=== PATIENT | female | born 1990 | race Two or more races ===

== ENCOUNTER → 2019-03-25 11:17 | Outpatient (CLI) | payer OTHER, SELFPAY ==
[2019-03-25 13:24] LABS: Basophils % 0.8 % (0.1-2.0); Eosinophils # 0.2 K/mm3 (0.0-0.4); Eosinophils % 4.9 % (0.1-12.0); Hematocrit 42.4 % (37.0-47.0); Hemoglobin 13.6 g/dL (12.2-16.2); Lymphocytes # 1.7 K/mm3 (0.7-4.5); Lymphocytes % 36.2 % (10-50); Mean Corpuscular HGB Conc 32.1 g/dL (31.8-35.4); Mean Corpuscular Volume 90.2 fl (81-99); Mean Platelet Volume 7.3 fl (7.4-10.4); Monocytes # 0.2 K/mm3 (0.1-1.0); Monocytes % 4.6 % (1.7-9.3); Neutrophils # 2.4 K/mm3 (1.8-7.8); Neutrophils % 53.5 % (37.0-80.0); Platelet Count 317 K/mm3 (142-424); Red Cell Distribution Width 12.5 % (11.5-17.5); White Blood Count 4.6 K/mm3 (4.8-10.8)
[2019-03-25 13:47] LABS: HCG Qualitative, Serum Negative (Negative)
[2019-03-25 13:51] LABS: Alanine Aminotransferase 376 U/L (12-78); Albumin Level 3.4 gm/dL (3.4-5.0); Albumin/Globulin Ratio 0.9 (1.1-1.8); Alkaline Phosphatase 435 U/L (46-116); Anion Gap 15.4 mEq/L (5-15); Aspartate Amino Transferase 197 U/L (15-37); Bilirubin,Total 3.4 mg/dL (0.2-1.0); Blood Urea Nitrogen 9 mg/dL (7-18); Calcium 8.8 mg/dL (8.5-10.1); Carbon Dioxide 24 mmol/L (21.0-32.0); Chloride 105 mmol/L (98-107); Creatinine,Serum 0.71 mg/dL (0.55-1.02); Estimated Glomerular Filt Rate 100 ml/min (>60); GFR (African American) 120 ML/MIN (>60); Globulin 3.8 gm/dl (1.3-3.2); Glucose 102 mg/dL (74-106); Potassium 3.4 mmoL/L (3.5-5.1); Sodium 141 mmol/L (136-145); Total Protein,Serum 7.2 gm/dL (6.4-8.2)
[2019-03-25 16:04] LABS: Lipase 2021 u/L (73-393)
== END ==
PROVIDERS: PCP Nurse Practitioner Family; Visit Provider Nurse Practitioner Family
DX: R11.10 Vomiting, unspecified (principal)
CPT/HCPCS: 36415; 80053; 83690; 84703; 85025

== ENCOUNTER → 2019-03-31 15:12 | Outpatient (CLI) | payer OTHER, SELFPAY ==
[2019-03-31 15:37] LABS: Basophils % 0.5 % (0.1-2.0); Eosinophils # 0.3 K/mm3 (0.0-0.4); Eosinophils % 3.9 % (0.1-12.0); Hematocrit 43.4 % (37.0-47.0); Hemoglobin 13.7 g/dL (12.2-16.2); Lymphocytes # 2.4 K/mm3 (0.7-4.5); Lymphocytes % 31.6 % (10-50); Mean Corpuscular HGB Conc 31.6 g/dL (31.8-35.4); Mean Corpuscular Hemoglobin 28.4 pg (27.0-31.2); Mean Corpuscular Volume 89.8 fl (81-99); Mean Platelet Volume 7.3 fl (7.4-10.4); Monocytes # 0.3 K/mm3 (0.1-1.0); Monocytes % 3.8 % (1.7-9.3); Neutrophils # 4.6 K/mm3 (1.8-7.8); Neutrophils % 60.2 % (37.0-80.0); Platelet Count 341 K/mm3 (142-424); Red Blood Count 4.83 M/mm3 (4.20-5.40); Red Cell Distribution Width 12.3 % (11.5-17.5); White Blood Count 7.6 K/mm3 (4.8-10.8)
[2019-03-31 16:55] LABS: HCG Qualitative, Serum Negative (Negative)
[2019-03-31 17:34] LABS: Alanine Aminotransferase 94 U/L (12-78); Albumin Level 3.6 gm/dL (3.4-5.0); Albumin/Globulin Ratio 0.9 (1.1-1.8); Alkaline Phosphatase 239 U/L (46-116); Amylase 61 U/L (25-115); Anion Gap 14.6 mEq/L (5-15); Aspartate Amino Transferase 22 U/L (15-37); Bilirubin,Total 0.6 mg/dL (0.2-1.0); Blood Urea Nitrogen 10 mg/dL (7-18); Calcium 8.8 mg/dL (8.5-10.1); Carbon Dioxide 23 mmol/L (21.0-32.0); Chloride 106 mmol/L (98-107); Creatinine,Serum 0.72 mg/dL (0.55-1.02); Estimated Glomerular Filt Rate 98 ml/min (>60); GFR (African American) 118 ML/MIN (>60); Globulin 3.8 gm/dl (1.3-3.2); Glucose 90 mg/dL (74-106); Lipase 214 u/L (73-393); Potassium 3.6 mmoL/L (3.5-5.1); Sodium 140 mmol/L (136-145); Total Protein,Serum 7.4 gm/dL (6.4-8.2)
== END ==
PROVIDERS: Visit Provider Surgery
DX: K85.90 Acute pancreatitis without necrosis or infection, unspecified (principal); K85.10 Biliary acute pancreatitis without necrosis or infection
CPT/HCPCS: 36415; 80053; 82150; 83690; 84703; 85025

== ENCOUNTER → 2020-04-04 13:09 | Outpatient (CLI) | payer OTHER, SELFPAY ==
--- NOTE | 2020-04-04 13:14 | XR_ITS ---
PROCEDURE: XR WRIST RT MIN 3V CLINICAL INDICATION: INJURY OF R WRIST/INITIAL ENCOUNTER Pain following injury COMPARISON: No exams were available for comparison FINDINGS: No fracture or dislocation. No lytic or blastic change. There is normal mineralization. The joint spaces are well-preserved. No significant degenerative/arthritic changes. No erosive changes evident. Other findings:None. IMPRESSION: No acute findings. Dictated by: Gerald Newton MD 04/04/2020 13:53 Electronically signed by Gerald Newton MD in [place] 04/04/2020 13:53
== END ==
PROVIDERS: PCP Nurse Practitioner Family; Visit Provider Nurse Practitioner Family
DX: S69.91XA Unspecified injury of right wrist, hand and finger(s), initial encounter (principal)
CPT/HCPCS: 73110

== ENCOUNTER 2020-12-09 09:32 | Emergency (ER) | payer BC, SELFPAY ==
[2020-12-09 10:14] VITALS: BP 151/91; PULSE 88; RESP 16; TEMP 37.2; O2SAT 97; BMI 32.4
--- NOTE | 2020-12-09 10:39 | HMH.EDUTC ---
[facility] [place] Clinical Impression: Strep throat Otitis media Qualifiers: Otitis media type: suppurative Chronicity: acute Laterality: right Recurrence: non-recurrent Spontaneous tympanic membrane rupture: without spontaneous rupture Qualified Code(s): H66.001 - Acute suppurative otitis media without spontaneous rupture of ear drum, right ear Disposition: Home, Self-Care Condition on Discharge: Good Instructions: DI for Strep Throat, Middle Ear Infection Additional Instructions: Start antibiotics today be sure to take it as ordered with the full length of time although you should start feeling better in 24-48 hours. Change toothbrush and toothpaste 24-48 hours after starting antibiotics Tylenol or Motrin as needed for fever or pain Encourage fluids, water, Gatorade, Powerade, try cold fluids, popsicles, ice cream will make it feel better You are contagious for 24 hours. Avoid kissing anyone, no eating or drinking after anyone. You are contagious. Follow-up the ER for new or worsening symptoms or no noticeable improvement over the next 24-48 hours. Follow-up with PCP this week. Prescriptions: Amoxicillin [Amoxicillin 500mg Tab] 500 mg PO BID 10 Days #20 tab Prescription Printed Referrals: PCPNatalia [Primary Care Provider] - Time of Disposition: 10:45 Medical Decision Making - Lul Inquiry Pt receiving controlled substance: No Vital Signs: 12/09/20 10:14 Temperature 98.9 F Temperature Source Oral Pulse Rate [Right] 88 Respiratory Rate 16 Blood Pressure [Right Arm] 151/91 H Blood Pressure Mean [Right Arm] 111 Blood Pressure Source [Right Arm] Automatic Cuff Blood Pressure Position [Right Arm] Sitting 02 Sat by Pulse Oximetry 97 Oxygen Delivery Method Room Air [facility] [place] - General Chief complaint: Urgent [facility] Stated complaint: possible ear infection both Time Seen by Provider: 12/09/20 10:39 Mode of Arrival: Ambulatory Source of Information: Patient Limitations: No Limitations Description of Symptoms (Recalled from Triage Doc. by RN): pt is having right ear pain and pressure. she has chronic ear pressure. her son is also being tx for strep. HEENT Symptoms (Recalled from RN notes): Yes (sore throat and R ear pain) Resp Symptoms (Recalled from RN notes): No Skin Symptoms (Recalled from RN notes): No MS Symptoms (Recalled from RN notes): No Functional Status (Recalled from RN notes): na - History of Present Illness Provider Complaint: 30 yr old female presents for sore throat, irene ear pain and ear pressure for 2 days. son was dx with strep yesterday - Related Data Previous Rx's Medication Instructions Recorded Amoxicillin [Amoxicillin 500mg Tab] 500 mg PO BID 10 Days #20 tab 12/09/20 Allergies Allergy/AdvReac Type Severity Reaction Status Date / Time No Known Allergies Allergy Verified 04/07/19 13:48 - Worker's Comp Is this a Worker's Comp case?: No [facility] History - Hepatitis A Screen Drug use history?: No High risk sexual behaviors?: No History of sexually transmitted infection?: No Currently employed?: No Childcare worker?: No Do you have indoor plumbing?: Yes Do you have electricity?: Yes Attestation statement:: This patient has been screened for Hepatitis A risk factors. I have reviewed the patient's past medical history: Yes Medical History: Reports:: Anxiety Denies:: Cancer, Diabetes Mellitus Type 1, Diabetes Mellitus Type 2, Internal Pacemaker, Lung Disease, MRSA, Seizures Other Medical History: Denies: Blood Transfusion Reaction Other Surgeries: Yes: Cholecystectomy, Other (left should lesion excision, ). No: Pacemaker Amputation: No Fractures: No - Social History Smoking Status: Never smoker Alcohol Intake: never Alcohol Intake Frequency:: holidays/special occasions only Substance Use Type: denies use Occupational Status: employed Housing: house Household Members: spouse - Psychiatric History Pschychiatric History:: Reports:: Anxiety Family
[2020-12-09 10:54] VITALS: BP 141/87; PULSE 89; RESP 14; TEMP 36.6
[2020-12-09 11:11] LABS: UTC Strep Screen (Rapid) Negative (Negative)
== END 2020-12-09 10:54 | disposition home or self-care (01) ==
PROVIDERS: Emergency Provider Nurse Practitioner Family
DX: J02.0 Streptococcal pharyngitis (principal); H66.001 Acute suppurative otitis media without spontaneous rupture of ear drum, right ear; F41.9 Anxiety disorder, unspecified
CPT/HCPCS: 87880; 99202; G0463

== ENCOUNTER 2021-12-16 09:22 | Emergency (ER) | payer BC, SELFPAY ==
[2021-12-16 09:25] VITALS: BP 138/90; PULSE 143; RESP 18; TEMP 37.3; O2SAT 98; BMI 27.7
[2021-12-16 09:50] LABS: UTC Pregnancy Test, Urine Negative (Negative)
[2021-12-16 09:50] LABS: Apearance,Urine Clear (Clear); Bilirubin,Urine Negative (Negative); Blood, Urine 1+ (Negative); Color,Urine Yellow (Yellow); Glucose,Urine (UA) Negative (Negative); Ketones,Urine Negative (Negative); Protein,Urine 1+ (Negative)
[2021-12-16 09:51] LABS: UTC Leukocyte Esterase,Urine Trace (Negative); UTC Nitrate,Urine Negative (Negative); Urobilinogen,Urine 0.2 EU/dl (0.2)
--- NOTE | 2021-12-16 09:56 | HMH.EDUTC ---
[facility] [place] Clinical Impression: UTI (urinary tract infection) Qualifiers: Urinary tract infection type: acute cystitis Hematuria presence: with hematuria Qualified Code(s): N30.01 - Acute cystitis with hematuria Disposition: Home, Self-Care Condition on Discharge: Good Instructions: Urinary Tract Infection Additional Instructions: Increase fluids, water and not soda or tea. Can drink cranberry juice or cranberry extract. White front to back Wear cotton underwear Empty bladder after intercourse Start antibiotics immediately and make sure you take the full course although you may start to see improvement over the next 48 hours. You can eat yogurt or take probiotics to decrease diarrhea or yeast infection caused by the antibiotic Be sure to follow-up anytime for new or worsening symptoms in 48 hours for wound urine culture results be sure to let you PCP no recent urine for culture so they can request records and ensure that you have appropriate antibiotic if you are not getting better or getting worse. If symptoms worsen or do not improve return or be seen in the ER. Follow-up with primary care this week. Prescriptions: cephALEXin [Cephalexin 500mg Tab] 500 mg PO BID 7 Days #14 tab Prescription Printed Referrals: Provider,Referral, MD [Primary Care Provider] - Time of Disposition: 10:02 Medical Decision Making - Lul Inquiry Pt receiving controlled substance: No Vital Signs: 12/16/21 09:25 Temperature 99.1 F Temperature Source Oral Pulse Rate [Left Brachial] 143 H Respiratory Rate 18 Blood Pressure [Left Arm] 138/90 Blood Pressure Mean [Left Arm] 106 Blood Pressure Source [Left Arm] Automatic Cuff Blood Pressure Position [Left Arm] Sitting 02 Sat by Pulse Oximetry 98 Oxygen Delivery Method Room Air - Lab Data Lab Results 12/16/21 09:37: Urine Color Yellow, Urine Appearance Clear, Urine pH 5.0, Ur Specific [place] 1.030, Urine Protein 1+, Urine Glucose (UA) Negative, Urine Ketones Negative, Urine Blood 1+, Urine Nitrate Negative, Urine Bilirubin Negative, Urine Urobilinogen 0.2, Ur Leukocyte Esterase Trace 12/16/21 09:49: Tst Clinic Negative Orders (Tests/Meds): ORDERS Category Date Time Status Urine Culture Stat Micro 12/16/21 09:49 Ordered [facility] [place] - General Chief complaint: Urgent Treatment Center Stated complaint: stabbing pains and nausea Time Seen by Provider: 12/16/21 09:56 Mode of Arrival: Ambulatory Source of Information: Patient Limitations: No Limitations Description of Symptoms (Recalled from Triage Doc. by RN): PATIENT C/O PAIN UNDER RIGHT RIBS, VOMITING, DIARRHEA, AND LOWER BACK PAIN SINCE LAST NIGHT HEENT Symptoms (Recalled from RN notes): No Resp Symptoms (Recalled from RN notes): No Skin Symptoms (Recalled from RN notes): No MS Symptoms (Recalled from RN notes): Yes Functional Status (Recalled from RN notes): WNL - History of Present Illness Provider Complaint: 31 yr old female presents for rt rib pain,vomiting, diarreha, and lower back pain. - Related Data Previous Rx's Medication Instructions Recorded cephALEXin [Cephalexin 500mg Tab] 500 mg PO BID 7 Days #14 tab 12/16/21 Allergies Allergy/AdvReac Type Severity Reaction Status Date / Time No Known Allergies Allergy Verified 04/07/19 13:48 - Worker's Comp Is this a Worker's Comp case?: No H History - Hepatitis A Screen Drug use history?: No High risk sexual behaviors?: No History of sexually transmitted infection?: No Currently employed?: No Childcare worker?: No Do you have indoor plumbing?: Yes Do you have electricity?: Yes Attestation statement:: This patient has been screened for Hepatitis A risk factors. I have reviewed the patient's past medical history: Yes Medical History: Reports:: Anxiety Denies:: Cancer, Diabetes Mellitus Type 1, Diabetes Mellitus Type 2, Internal Pacemaker, Lung Disease, MRSA, Seizures Other Medical History: Denies: Blood Transfus
[2021-12-16 10:04] VITALS: BP 138/90; PULSE 143; RESP 18; TEMP 37.3; O2SAT 98
== END 2021-12-16 10:10 | disposition home or self-care (01) ==
PROVIDERS: Emergency Provider Nurse Practitioner Family
DX: N30.01 Acute cystitis with hematuria (principal); R11.2 Nausea with vomiting, unspecified; R19.7 Diarrhea, unspecified; F41.9 Anxiety disorder, unspecified
CPT/HCPCS: 81003; 81025; 87086; 99213; G0463

== ENCOUNTER → 2022-02-01 10:25 | Outpatient (CLI) | payer BC, SELFPAY ==
--- NOTE | 2022-02-01 10:25 | US_ITS ---
PROCEDURE INFORMATION: Exam: US Right Breast, Complete Exam date and time: 02/01/2022 10:47 AM Age: 31 years old Clinical indication: Right palp area x sev mos-- has been on antibiotics x 2 TECHNIQUE: Imaging protocol: Complete ultrasound of all four quadrants of the Right breast and the retroareolar regions, including ultrasound of the axilla when performed. COMPARISON: No relevant prior studies available. FINDINGS: Breast: Sonographic images of the right breast including the retroareolar region, all 4 quadrants and the axilla do not demonstrate any solid masses. 0.6 x 0.2 cm sebaceous cyst in the upper outer quadrant corresponding to the patient's complaint of a palpable abnormality. Additional 0.7 cm cyst in the right 10 o'clock axis 5 cm from the nipple. No architectural distortion or acoustical shadowing. No skin thickening or axillary adenopathy. IMPRESSION: Palpable abnormality corresponds to a sebaceous cyst. ASSESSMENT: BI-RADS Category 2: Benign
[2022-02-01 12:33] LABS: Thyroid Stimulating Hormone 1.54 uIU/mL (0.465-4.68)
== END ==
PROVIDERS: PCP Obstetrics & Gynecology; Visit Provider Obstetrics & Gynecology
DX: R68.82 Decreased libido; N60.01 Solitary cyst of right breast
CPT/HCPCS: 36415; 76641; 84443

== ENCOUNTER 2024-03-04 16:33 | Outpatient (CLI) | payer BC, SELFPAY ==
[2024-03-04 17:31] LABS: Basophils # 0.1 K/mm3 (0-0.2); Basophils % 0.7 % (0.1-2.0); Eosinophils # 0.2 K/mm3 (0.0-0.4); Eosinophils % 1.5 % (0.1-12.0); Hematocrit 39.4 % (37.0-47.0); Hemoglobin 13.1 g/dL (12.2-16.2); Lymphocytes # 4.5 K/mm3 (0.7-4.5); Lymphocytes % 38.4 % (10-50); Mean Corpuscular HGB Conc 33.2 g/dL (31.8-35.4); Mean Corpuscular Hemoglobin 29.2 pg (27.0-31.2); Mean Platelet Volume 7.7 fl (7.4-10.4); Monocytes # 0.5 K/mm3 (0.1-1.0); Monocytes % 4.5 % (1.7-9.3); Neutrophils # 6.4 K/mm3 (1.8-7.8); Platelet Count 380 K/mm3 (142-424); Red Blood Count 4.48 M/mm3 (4.20-5.40); Red Cell Distribution Width 13.6 % (11.5-17.5); White Blood Count 11.7 K/mm3 (4.8-10.8)
[2024-03-04 17:53] LABS: Anion Gap 15.1 mEq/L (5-15); Blood Urea Nitrogen 14 mg/dl (7-17); Calcium 9.5 mg/dl (8.4-10.2); Carbon Dioxide 24 mmol/L (22.0-30.0); Chloride 103 mmol/L (98-107); Estimated Glomerular Filt Rate 98 ml/min (>60); GFR (African American) 118 ML/MIN (>60); Glucose 92 mg/dl (74-100); Potassium 4.1 mmoL/L (3.5-5.1); Sodium 138 mmol/L (136-145)
[2024-03-04 18:00] LABS: Urine Pregnancy, HCG Qual. Negative (Negative)
== END 2024-03-04 23:59 | disposition home or self-care (01) ==
LOC: LAB 16:34
PROVIDERS: PCP Nurse Practitioner Family; Visit Provider Surgery
DX: N63.12 Unspecified lump in the right breast, upper inner quadrant (principal)
CPT/HCPCS: 36415; 80048; 81025; 85025

== ENCOUNTER 2024-03-08 05:50 | Day surgery (SDC) | payer BC, SELFPAY ==
[2024-03-03 13:08] VITALS: BMI 31.1
[2024-03-08] VITALS (9 sets, daily range): BP systolic 122–148; BP diastolic 63–91; PULSE 75–100; RESP 14–18; TEMP 36.2–36.3; O2SAT 92–100; BMI 31.1
[2024-03-08] MEDS: LACTATED RINGERS 1000ML 1,000 ML 25 ML IV (06:40)
--- NOTE | 2024-03-08 06:53 | P.PNANES_ITS ---
[facility] Disclaimer: The information contained in this section may have been updated after the patient was seen, as this information can be updated by other users. Medical History Encounter for IUD insertion Paragard 02/21/22 Decreased libido Nexplanon in place Breast mass, right sebaceous cyst UTI (urinary tract infection) Strep throat Otitis media Gallstone pancreatitis Common bile duct stone Surgical History History of cholecystectomy Family History Grandmother Cancer Heart attack Hypertension Grandfather Heart attack Other Coronary artery disease Diabetes Social History Smoking Status: Never smoker alcohol intake: never substance use type: denies use current occupational status: employed Travel in the last 8 weeks: None household members: spouse housing: house 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 current occupational exposures/hazards: No caffeine: No [facility] Anesthesia Checklist Patient Identification Patient Identification: Arm Band and Family Structural Data Admitted From: Home Planned Operative Procedure/s: Excission mass Right breast Consent for Planned Operative Procedure(s) Verified: Yes Verified Documents: Surgical Consent and History and Physical NPO Status Verified Time NPO: 00:00 Additional verifications Patient : No Anesthesia Reactions: No Hx Blood Transfusions: No Blood Transfusion Reaction: No Cephalosporin Allergy: No Previous Colonoscopy: No Airway Assessment Mallampati Score:: Class II C-Spine Mobility Assessed: Yes TMJ Mobility Assessed: Yes Dentition: Good Dentition Neurological Assessment Level of Consciousness: Awake, Alert, Appropriate and Follows Commands Hx Seizures: No Numbness or tingling in extremities: No Anesthesia Plan Anesthesia Risk discussed: Yes ASA Class: I Anesthesia Type: General
[2024-03-08] MEDS: 0.9 % SODIUM CHLORIDE 100 ML IV (07:25)
[2024-03-08] MEDS: CEFAZOLIN SODIUM 1 GM in 0.9 % SODIUM CHLORIDE 50 ML IV (07:25)
[2024-03-08] MEDS: LIDOCAINE 1% 10ML MDV 10 ML (07:26)
[2024-03-08] MEDS: ROPIVACAINE 0.5% 30ML VIAL 150 MG (07:26)
--- NOTE | 2024-03-08 07:48 | P.PNANES_ITS ---
[facility] Anesthesia Record Part I Anesthesia Record I Intake, IV Amount: 400 Hydration: Adequate Estimated blood loss (mL): 1 Urine output (mL): 0 Blood Products used (#): none Blood Pressure: 142/91 SaO2: 92 Pulse Rate: 87 Airway Patency: Patent Respiratory Rate: 14 Temperature: 97.2 F Patient is:: Drowsy and Stable Stable to PACU at:: 07:43
--- NOTE | 2024-03-08 08:19 | EXP.OP.NOTE ---
Date of procedure: 03/08/24 Pre-op Diagnosis:: Right breast mass Post-op Diagnosis:: Same Procedure performed:: Excision of subcutaneous mass right upper inner breast (excisional length 2.0 cm) Surgeon:: Jonathan Issa MD Anesthesia: LMA Estimated blood loss (mL): 3 Operative findings:: Consistent with benign inclusion cyst Operative note:: Patient was taken to the operating room. Anesthesia was induced via LMA. Right breast was prepped and draped in the standard surgical fashion. Lesion was palpated. Skin was marked the skin marker for planned crescent shaped elliptical incision. Local anesthetic was infiltrated. Skin incision was performed and careful sharp dissection was carried down to the cyst capsule. Using sharp dissection and some use of tenotomy scissors the underlying lesion was dissected free in its entirety with the attached overlying skin. There was some caseous material which exuded but was not spilled from the cyst making it consistent with an inclusion cyst. Wound was irrigated. Deep dermal tissues were reapproximated with several interrupted 3-0 Vicryl. Skin was closed with interrupted 4-0 nylon. Condition: stable Disposition: PACU Complications:: None immediately apparent
--- NOTE | 2024-03-09 08:15 | P.PNANES_ITS ---
[facility] Anesthesia Record Part II Anesthesia Record Part II Discharge Time: 08:13 Destination: Surgical Day Care (OP Surgery) PACU nurse assessment reviewed?: Yes Patient Condition:: Good Anesthesia Complications:: None Swallowing reflex intact?: Yes Airway Patency: Patent Cyanosis?: No Blood Pressure: 148/88 SaO2: 95 Respiratory Rate: 16 Pulse Rate: 89 Temperature: 97.4 F Mental Status: Alert & Oriented Pain level:: 0 Nausea and/or vomitting:: None Intake, IV Amount: 0 Hydration: Adequate
[2024-03-09 08:16] VITALS: BP 148/88; PULSE 89; RESP 16; TEMP 36.3; O2SAT 95
== END 2024-03-08 08:44 | disposition home or self-care (01) ==
PROVIDERS: PCP Nurse Practitioner Family; Visit Provider Surgery
PROC: (CPT 19125; principal; 2024-03-08 07:30)
DX: N64.4 Mastodynia (principal); N63.10 Unspecified lump in the right breast, unspecified quadrant
CPT/HCPCS: 19125; 96374; J0690; J1100; J2405; J2704; J3010; J7120

== ENCOUNTER 2024-07-05 17:33 | Outpatient (CLI) | payer BC, SELFPAY ==
[2024-07-05 18:28] LABS: HCG,Quantitative 1099 mIU/ml (0-5.42)
[2024-07-07 12:20] LABS: Progesterone 12.6 ng/mL (.)
== END 2024-07-05 23:59 | disposition home or self-care (01) ==
LOC: LAB 17:34
PROVIDERS: PCP Obstetrics & Gynecology; Visit Provider Obstetrics & Gynecology
DX: Z34.90 Encounter for supervision of normal pregnancy, unspecified, unspecified trimester (principal)
CPT/HCPCS: 84144; 84702

== ENCOUNTER 2024-07-20 16:01 | Emergency (ER) | payer BC, SELFPAY ==
[2024-07-20 16:02] VITALS: BP 171/89; PULSE 110; RESP 20; TEMP 36.8; O2SAT 99; BMI 32.0
--- NOTE | 2024-07-20 16:05 | US_ITS ---
PROCEDURE INFORMATION: Exam: US , Transvaginal Exam date and time: 07/20/2024 4:21 PM Age: 34 years old Clinical indication: Lmp or gestational age (in weeks): 05/31/2024; Other: Bleeding and cramping; ; Additional info: Vaginal bleeding in preg LABS AND CLINICAL REPORTS: Last menstrual period start date: 05/31/2024 Gestational age (Established): 7 w 1 d Estimated due date (Established): 03/07/2025 TECHNIQUE: Imaging protocol: Real-time transvaginal obstetrical ultrasound of the maternal pelvis with image documentation. Transvaginal imaging was used for better evaluation of the fetus, adnexa, and/or cervix. COMPARISON: ABDPELW CT abdomen pelvis w con 03/25/2019 6:20 PM FINDINGS: Gestation: Single intrauterine Yolk sac measures 4.7 mm. heart rate: 134 bpm Placenta: Subchorionic hemorrhage versus clotting in the left horn. BIOMETRY: Gestational age (AUA): 6 w 3 d Estimated due date (AUA): 03/12/2025 Anita rump length (CRL): 6 mm. EGA (CRL) is 6 w 3 d MATERNAL: Uterus: Question of a bicornuate uterus with IUP in the right horn.. Cervix: Nabothian cyst in the cervix Right ovary/adnexa: Right ovary measures 2.26 cm x 1.57 cm x 1.87 cm. Right ovarian volume is 3.47 mL. Left ovary/adnexa: Left ovary measures 3.02 cm x 2.92 cm x 2.11 cm. Left ovarian volume is 9.74 mL. IMPRESSION: 1. Single intrauterine . Gestational age by ultrasound 6 weeks 3 days 2. Question of a bicornuate uterus with IUP in the right horn.. 3. Subchorionic hemorrhage versus clotting in the left horn.
--- NOTE | 2024-07-20 16:15 | PC.NURSE ---
PT TO US
--- NOTE | 2024-07-20 17:04 | ED_ITS ---
Discharge Plan Disposition Patient Disposition: Home, Self-Care Chief Complaint: Vaginal Bleeding Prescriptions Prescriptions: No Action No Known Home Medications Referrals Follow up/Referrals: Lexie Craft APRN [Primary Care Provider] - See instructions Activity Restrictions/Add. Instructions Additional Instructions/Restrictions: Follow-up with SCALE OPERATOR regarding this visit to the emergency department. Call your family doctor to establish care for this visit to the emergency department and schedule follow-up within 48 hours to ensure improvement. If you have any worsening of your condition or any other concerning signs or symptoms, return to the emergency department or your primary care doctor for further evaluation. Clinical Impressions Clinical Impression: Vaginal bleeding affecting early Print Language Print Language: Syriac Discharge ED Provider: Jorge Rubalcava General Adult HPI General Chief complaint: Vaginal Bleeding Stated complaint: 7 wks with spotting and cramping Time Seen by Provider: 07/20/24 16:04 Mode of Arrival: Ambulatory Source of Information: Patient Limitations: No Limitations Description of Symptoms (Recalled from ER Triage Doc. by RN): pt is a patient of dr morocho and had some pink on toilet paper wiping today. pt is approx 7 weeks along and this will be 4th . pt is tony x4 and rh neg History of Present Illness HPI narrative: Please note that above description of symptoms, in this electronic medical record under categorization of recalled from ER triage doctor by RN are reflective of an initial nursing assessment, however, is not reflective of my full history and physical exam that was personally taken and clarified. Consequentially, this preceding description of symptoms, which may include the patient's categorized chief complaint in the EMR, do not reflect my personal clinical impression, and the ultimate description of history of present illness and patient stated complaints should be deferred to this section of the note. Unless stated otherwise or congruent with this section of the note, additional signs, symptoms, or incongruence should be interpreted as inaccurate with my clinical impression. Related Data Home Medications ?Medication ?Instructions ?Recorded ?Confirmed No Known Home Medications 01/27/24 03/23/24 Allergies Allergy/AdvReac Type Severity Reaction Status Date / Time No Known Allergies Allergy Verified 03/23/24 13:32 [facility] Disclaimer: The information contained in this section may have been updated after the patient was seen, as this information can be updated by other users. Medical History Encounter for IUD insertion Paragard 02/21/22 Decreased libido Nexplanon in place Breast mass, right sebaceous cyst UTI (urinary tract infection) Strep throat Otitis media Gallstone pancreatitis Common bile duct stone Surgical History History of cholecystectomy Family History Grandmother Cancer Heart attack Hypertension Grandfather Heart attack Other Coronary artery disease Diabetes Social History Smoking Status: Never smoker alcohol intake: never substance use type: denies use current occupational status: employed Travel in the last 8 weeks: None household members: spouse housing: house 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 current occupational exposures/hazards: No caffeine: No Other Medical History Have you received the Flu Vaccine for this season: No Have you received the Pneumonia Vaccine: No ROS Obtained: Yes All systems reviewed & no additional complaints except as documented Physical Exam General General appearance: alert Head Head exam: atraumatic and normocephalic Eye Eye exam: Present normal appearance, PERRL and EOMI Neck Neck exam: Present normal inspection, full ROM and trachea midline Respiratory Respiratory exam: Absent respiratory distress, wheezes, stridor, accessory muscle use or prolonged expiratory phase Cardiovascular Cardiovascular exam: Present other (Pulses equal symmetric in upper and lower extremities) Abdominal Exam Abdominal exam: Present soft; Absent distention, tenderness or pulsatile mass Extremities Exam Extremities exam: Absent edema Neurological Exam Neurological exam: Present alert, oriented X3 and CN II-XII intact; Absent motor sensory deficit Skin Skin exam: Present warm and dry; Absent diaphoresis or erythema Medical Decision Making Medical Records Medical records reviewed: Yes I reviewed the patient's medical records. Screening: Per USPSTF and CDC recommendations, given the prevalence of disease in our region, it is our hospital?s policy to screen for HIV and viral Hepatitis for all patients aged 18 and over and those with ongoing risk factors. Lul Inquiry Pt receiving controlled substance: No Lul was queried for this patient: No Vital Signs: 07/20/24 16:02 Temperature 98.2 F Temperature Source Oral Pulse Rate [Right Radial] 110 H Respiratory Rate 20 Blood Pressure [Right Arm] 171/89 H Blood Pressure Mean [Right Arm] 116 02 Sat by Pulse Oximetry 99 Oxygen Delivery Method Room Air Lab Data Lab Results 07/20/24 17:02: WBC 10.8, RBC 4.79, Hgb 14.2, Hct 41.8, MCV 87.2, MCH 29.7, MCHC 34.0, RDW 13.2, Plt Count 345, MPV 7.0 L, Neut % (Auto) 66.2, Lymph % (Auto) 27.5, [place] % (Auto) 4.5, Eos % (Auto) 1.3, Baso % (Auto) 0.5, Neut # (Auto) 7.1, Lymph # (Auto) 3.0, [place] # (Auto) 0.5, Eos # (Auto) 0.1, Baso # (Auto) 0.1, S odium 135 L, Potassium 3.5, Chloride 103, Carbon Dioxide 24, Anion Gap 11.5, BUN 10, Creatinine 0.50 L, Estimated Creat Clear 202, Estimated GFR 143, Est GFR ( Amer) 173, Glucose 92, Calcium 9.7, Total Bilirubin 0.4, AST 24, ALT 22, Alkaline Phosphatase 83, Total Protein 7.9, Albumin 4.3, Globulin 3.6 H, Albumin/Globulin Ratio 1.2, HCG, Quant 33799 H, Blood Type O Negative 07/20/24 17:02: Blood Type O Negative, Antibody Screen Negative 07/20/24 17:15: Urine Color Yellow, Urine Appearance Clear, Urine pH 6.0, Ur Specific [place] 1.015, Urine Protein Negative, Urine Glucose (UA) Negative, Urine Ketones Negative, Urine Blood Negative, Urine Nitrate Negative, Urine Bilirubin Negative, Urine Urobilinogen 0.2, Ur Leukocyte Esterase Trace, Urine RBC Occasional, Urine WBC Occasional, Ur Squamous Epith Cells 10-20, Amorphous Sediment 1+, Urine Bacteria Trace 07/20/24 17:02 07/20/24 17:02 Orders (Tests/Meds): ED MEDICATIONS Generic Name Dose Route Start Last Admin Trade Name Freq PRN Reason Stop Dose Admin Rho Immune Globulin 300 mcg 07/20/24 18:17 Rho(D) Immune Globulin 1,500 Unit (300mcg) Syringe IM 08/19/24 18:16 NEEDED PRN For Rh Pre/ scrn resu Discontinued Medications Generic Name Dose Route Start Last Admin Trade Name Carissa PRN Reason Stop Dose Admin Rho Immune Globulin 300 mcg 07/20/24 18:26 Rho(D) Immune Globulin 1,500 Unit (300mcg) Syringe IM 07/20/24 18:27 ONCE ONE ORDERS Category Date Time Status Rhogam Stat BBK 07/20/24 17:02 Completed Rhogam Stat BBK 07/20/24 18:25 Ordered Type and Screen Stat BBK 07/20/24 17:02 Results CBC w/Auto Diff [Complete Blood Count Auto Diff] Stat Lab 07/20/24 17:02 Completed CMP [Comprehensive Metabolic Panel] Stat Lab 07/20/24 17:02 Completed HCG,Quantitative Stat Lab 07/20/24 17:02 Completed UA [Urinalysis and Microscopic] Stat Lab 07/20/24 17:15 Completed US OB transvaginal Stat Ultrasound 07/20/24 16:05 Completed Medical Decision Narrative: 34-year-old female G4, P3 who is currently 7 weeks presenting with spotting. Patient states that spotting started today. She is Rh-. Was sent by her SCALE OPERATOR for further evaluation. States that along with the spotting that is only present when she wipes, she is having lower back pain. No abdominal cramping, vaginal discharge, loss of fluid, fevers, chills, or any other concerns. History was obtained via conversation with patient. On arrival, patient hemodynamically stable, alert, oriented x4, appropriate, GCS 15, moving all extremities spontaneously, pupils equal and reactive to light. Full physical exam performed and significant for well-appearing female no acute distress. Abdomen soft, nontender, nondistended. Hemodynamically stable and well-appearing. Differential includes spontaneous , threatened , inevitable , routine cervical change, vasa previa, subchorionic hemorrhage, abruption, among others. Workup independently interpreted and significant for nonactionable CBC or chemistry. Urinalysis unremarkable. O negative blood type. RhoGAM given. 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 See radiology read for full review of final results. On reevaluation, patient resting comfortably. SCALE OPERATOR was contacted and case was discussed, patient appropriate for outpatient management. Given patient presentation, workup, history, this most likely represents small subchorionic hemorrhage and vaginal bleeding in early . Because patient at baseline without signs or symptoms of clinical decompensation, deemed appropriate for discharge. Results were relayed to patient who voiced understanding and were agreeable to outpatient management and follow up. I discussed my clinical impression with patient and answered all questions. At this time, the evidence for any other entities in the differential is insufficient to warrant any further testing or ED observation. This was explained as well. Advisory was given that persistent or worsening symptoms require further evaluation. I confirmed the understanding of this discussion. Security Police Officer disclaimer Much of this encounter note is an electronic socially responsible investment adviser spoken language to printed text. Electronic socially responsible investment adviser of the spoken language may permit errors. Although I have reviewed the note, some errors may still exist. Critical Care Critical Care Time Critical Care Time: No
[2024-07-20 17:18] LABS: Albumin Level 4.3 g/dl (3.5-5.0); Chloride 103 mmol/L (98-107); Potassium 3.5 mmoL/L (3.5-5.1); Sodium 135 mmol/L (136-145)
[2024-07-20 17:19] LABS: Basophils # 0.1 K/mm3 (0-0.2); Basophils % 0.5 % (0.1-2.0); Eosinophils # 0.1 K/mm3 (0.0-0.4); Eosinophils % 1.3 % (0.1-12.0); Hematocrit 41.8 % (37.0-47.0); Hemoglobin 14.2 g/dL (12.2-16.2); Lymphocytes % 27.5 % (10-50); Mean Corpuscular Hemoglobin 29.7 pg (27.0-31.2); Mean Corpuscular Volume 87.2 fl (81-99); Monocytes # 0.5 K/mm3 (0.1-1.0); Monocytes % 4.5 % (1.7-9.3); Neutrophils # 7.1 K/mm3 (1.8-7.8); Neutrophils % 66.2 % (37.0-80.0); Platelet Count 345 K/mm3 (142-424); Red Blood Count 4.79 M/mm3 (4.20-5.40); Red Cell Distribution Width 13.2 % (11.5-17.5); White Blood Count 10.8 K/mm3 (4.8-10.8)
[2024-07-20 17:21] LABS: Alanine Aminotransferase 22 U/L (12-78); Albumin/Globulin Ratio 1.2 (1.1-1.8); Alkaline Phosphatase 83 U/L (38-126); Anion Gap 11.5 mEq/L (5-15); Aspartate Amino Transferase 24 U/L (14-36); Bilirubin,Total 0.4 mg/dl (0.2-1.3); Blood Urea Nitrogen 10 mg/dl (7-17); Carbon Dioxide 24 mmol/L (22.0-30.0); Creatinine Clearance Estimated 202 mL/min (50-200); Estimated Glomerular Filt Rate 143 ml/min (>60); GFR (African American) 173 ML/MIN (>60); Globulin 3.6 g/dL (1.3-3.2); Glucose 92 mg/dl (74-100); Total Protein,Serum 7.9 g/dl (6.3-8.2)
[2024-07-20 17:22] LABS: Calcium 9.7 mg/dl (8.4-10.2)
[2024-07-20 17:27] LABS: Microscopic, Urine URINE MICROSCOPIC (MICROSCOPIC)
[2024-07-20 17:35] LABS: Appearance,Urine CLEAR (Clear); Bilirubin,Urine Negative (Negative); Blood, Urine Negative (Negative); Color,Urine YELLOW (Yellow); Glucose,Urine (UA) Negative (Negative); Ketones,Urine Negative (Negative); Leukocyte Esterase,Urine TRACE (Negative); Nitrate,Urine Negative (Negative); Protein,Urine Negative (Negative); Specific Gravity, Urine 1.015 (1.005-1.030); Urobilinogen,Urine 0.2 EU/dl (0.2)
[2024-07-20 17:53] LABS: Amorphous Sediment,Urine 1+ /lpf; RBC,Urine Occasional #/hpf (0-3); WBC,Urine Occasional #/hpf (0-3)
[2024-07-20 17:54] LABS: Bacteria,Urine Trace /lpf
[2024-07-20 18:07] LABS: HCG,Quantitative 28445 mIU/ml (0-5.42)
[2024-07-20] MEDS: RHO(D) IMMUNE GLOBULIN 1,500 UNIT (300MCG) SYRINGE 300 MCG IM (18:56)
[2024-07-20 19:10] VITALS: BP 153/82; PULSE 96; RESP 16; TEMP 36.8
== END 2024-07-20 19:12 | disposition home or self-care (01) ==
PROVIDERS: Emergency Provider Emergency Medicine; PCP Nurse Practitioner Family
DX: O20.9 Hemorrhage in early pregnancy, unspecified (principal)
CPT/HCPCS: 76817; 80053; 81001; 84702; 85025; 86850; 96372; 99283; J2790

== ENCOUNTER 2024-07-26 17:18 | Outpatient (CLI) | payer BC, SELFPAY ==
[2024-07-29 11:25] LABS: HCG,Quantitative 58668 mIU/ml (0-5.42)
== END 2024-07-26 23:59 | disposition home or self-care (01) ==
LOC: LAB 17:20
PROVIDERS: PCP Nurse Practitioner Family; Visit Provider Obstetrics & Gynecology
DX: Z34.90 Encounter for supervision of normal pregnancy, unspecified, unspecified trimester (principal)
CPT/HCPCS: 36415; 84144; 84702

== ENCOUNTER 2024-08-03 15:42 | Outpatient (CLI) | payer BC, SELFPAY ==
[2024-08-03 16:16] LABS: Basophils # 0.1 K/mm3 (0-0.2); Basophils % 0.5 % (0.1-2.0); Eosinophils # 0.2 K/mm3 (0.0-0.4); Eosinophils % 1.4 % (0.1-12.0); Hematocrit 40.3 % (37.0-47.0); Hemoglobin 13.9 g/dL (12.2-16.2); Lymphocytes # 3.2 K/mm3 (0.7-4.5); Lymphocytes % 30.4 % (10-50); Mean Corpuscular HGB Conc 34.5 g/dL (31.8-35.4); Mean Corpuscular Hemoglobin 29.5 pg (27.0-31.2); Mean Corpuscular Volume 85.6 fl (81-99); Mean Platelet Volume 6.8 fl (7.4-10.4); Monocytes # 0.4 K/mm3 (0.1-1.0); Monocytes % 4.2 % (1.7-9.3); Neutrophils # 6.7 K/mm3 (1.8-7.8); Neutrophils % 63.6 % (37.0-80.0); Platelet Count 344 K/mm3 (142-424); Red Blood Count 4.71 M/mm3 (4.20-5.40); Red Cell Distribution Width 13.2 % (11.5-17.5); White Blood Count 10.6 K/mm3 (4.8-10.8)
[2024-08-03 17:38] LABS: HIV (1&2) Antibody Rapid NONREACTIVE (NONREACTIVE)
[2024-08-04 09:39] LABS: HCV Ab Non Reactive (Non Reactive); Hepatitis B Surface Antigen Negative (Negative); Rubella Antibodies, IgG 1.31 index (Immune >0.99)
[2024-08-04 12:17] LABS: Rapid Plasma Reagin Ab Titer Non Reactive titer (NonRea<1:1)
== END 2024-08-03 23:59 | disposition home or self-care (01) ==
LOC: LAB 15:42
PROVIDERS: PCP Nurse Practitioner Family; Visit Provider Obstetrics & Gynecology
DX: Z34.81 Encounter for supervision of other normal pregnancy, first trimester (principal)
CPT/HCPCS: 36415; 85025; 86593; 86762; 86803; 86850; 86870; 87086; 87340; 87389

== ENCOUNTER 2024-08-31 16:17 | Outpatient (CLI) | payer BC, SELFPAY | END 2024-08-31 23:59 | disposition home or self-care (01) | LOC: LAB.DROPOF 16:18 | PROVIDERS: PCP Obstetrics & Gynecology; Visit Provider Obstetrics & Gynecology | DX: N30.01 Acute cystitis with hematuria (principal) | CPT/HCPCS: 87086 ==

== ENCOUNTER 2024-09-14 11:12 | Emergency (ER) | payer BC, SELFPAY ==
[2024-09-14] VITALS (10 sets, daily range): BP systolic 101–149; BP diastolic 67–87; PULSE 100–143; RESP 14–27; TEMP 36.9; O2SAT 94–98; BMI 30.7
--- NOTE | 2024-09-14 11:15 | ECG_ITS ---
APPROVED REPORT Exam: Resting ECG HR:143 bpm ECG Measurements Heart Rate 143 AXES VA 135 P 63 QRSd 78 QRS 57 QT 290 T 53 QTc 373 Conclusion SINUS TACHYCARDIA No acute STEMI. Normal axis Electronically signed by : NITHYA ANGEL, 09/14/2024 15:31:22
--- NOTE | 2024-09-14 11:22 | PC.NURSE ---
FHT'S 158-163 PER DOPPLER
[2024-09-14] MEDS: ONDANSETRON 4MG/2ML VIAL 4 MG IV (11:30)
[2024-09-14] MEDS: ACETAMINOPHEN 1,000MG/100ML VIAL 1000 MG IV (11:30)
[2024-09-14] MEDS: LACTATED RINGERS 1000ML 1,000 ML 999 ML IV ×2 (11:31→12:24)
[2024-09-14 11:34] LABS: Basophils % 0.3 % (0.1-2.0); Eosinophils # 0.1 K/mm3 (0.0-0.4); Hemoglobin 14.2 g/dL (12.2-16.2); Lymphocytes # 0.7 K/mm3 (0.7-4.5); Lymphocytes % 9.7 % (10-50); Mean Corpuscular HGB Conc 33.8 g/dL (31.8-35.4); Mean Corpuscular Hemoglobin 28.8 pg (27.0-31.2); Mean Corpuscular Volume 85.4 fl (81-99); Mean Platelet Volume 6.9 fl (7.4-10.4); Monocytes # 0.4 K/mm3 (0.1-1.0); Monocytes % 5.3 % (1.7-9.3); Neutrophils # 6.3 K/mm3 (1.8-7.8); Neutrophils % 83.8 % (37.0-80.0); Platelet Count 265 K/mm3 (142-424); Red Blood Count 4.92 M/mm3 (4.20-5.40); Red Cell Distribution Width 13.2 % (11.5-17.5); White Blood Count 7.5 K/mm3 (4.8-10.8)
--- NOTE | 2024-09-14 11:50 | ED_ITS ---
Discharge Plan Disposition Patient Disposition: Home, Self-Care Condition: Good Prescriptions Prescriptions: New propranolol 10 mg tablet 30 mg PO BID 30 Days Qty: 180 0RF No Action Gummies (DHA-EPA) 180 mcg-32.5mg- 25 mg-7.5 mg tablet,chewable PO loratadine [Claritin] 10 mg tablet 10 mg PO DAILY Referrals Follow up/Referrals: Luciana Vidal DO [Staff Physician] - See instructions Provider,Referral, [Primary Care Provider] - See instructions Activity Restrictions/Add. Instructions Additional Instructions/Restrictions: You were evaluated in the emergency department today. We feel that your symptoms are likely related to a viral upper respiratory infection. Take Tylenol at home as needed for pain/fever. Make sure you stay hydrated. Expect that cough may linger for several weeks. Given that it is viral, no antibiotics were prescribed as this will not help expedite recovery. At this time, your labs are concerning for hyperthyroidism, or high thyroid hormone level. We have prescribed you propranolol for this. Please take twice daily as prescribed. Follow-up closely 09/16 at 1:45pm with Dr. Vidal. I also recommend close follow-up with your primary care provider. Return to the emergency department right away for new or worsening symptoms. Clinical Impressions Clinical Impression: Hyperthyroidism affecting , Tachycardia, Viral URI with cough Stand Alone Forms Stand Alone Forms: Work/School Release Instructions Patient Instructions: DI for Hyperthyroidism Print Language Print Language: Georgian Discharge ED Provider: Isabell Song General Adult HPI General Chief complaint: Arrhythmia/Palpitations Stated complaint: cough,congestion Time Seen by Provider: 09/14/24 11:15 Mode of Arrival: Ambulatory Source of Information: Patient Limitations: No Limitations Description of Symptoms (Recalled from ER Triage Doc. by RN): PT SENT FROM PCP FOR ELEVATED HR WHILE IN CLINIC. PT REPORTS NO PRODUCTIVE COUGH SINCE FRIDAY. DENIES FEVER. PT REPORTS CHEST CONGESTION AND TIGHTNESS. PT AT APPROX 15 WEEKS GESTATION History of Present Illness HPI narrative: This patient is a 34-year-old G4, P3 at estimated 15 weeks presented to the emergency department for evaluation with concern for high heart rate from PCP clinic. Patient states that she started having ear pain bilaterally on , but that is gone away. She also was having congestion, which she feels went to her chest. She started having a cough yesterday. She notes that she has been able to eat and drink but she has not had quite as much oral intake because of being sick. She has also coughed to the point of vomiting. She went to her PCPs office where her heart rate was noted to be in the 140s, so she was sent to the ED for further evaluation and management. She denies any chest pain or shortness of breath. She also denies any abdominal pain or other concerns. She notes no significant complications with thus far. No history of blood clots, clotting disorders, calf pain, or swelling. Related Data Home Medications ?Medication ?Instructions ?Recorded ?Confirmed [id number]-[id number] 180 mcg-om3 32.5 tab PO 08/03/24 09/14/24 yh-ige-kkk-other [id number]-aqna chew tablet ( Gummies (DHA-EPA)) loratadine 10 mg tablet (Claritin) 10 mg PO DAILY 08/31/24 09/14/24 Previous Rx's ?Medication ?Instructions ?Recorded propranolol 10 mg tablet 30 mg (3 x 10 mg) PO BID 30 days 09/14/24 #180 tabs Allergies Allergy/AdvReac Type Severity Reaction Status Date / Time No Known Allergies Allergy Verified 09/14/24 08:57 [facility] Disclaimer: The information contained in this section may have been updated after the patient was seen, as this information can be updated by other users. 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 [employer] current occupational exposures/hazards: No caffeine: No Other Medical History Have you received the Flu Vaccine for this season: No Have you received the Pneumonia Vaccine: No ROS Obtained: Yes All systems reviewed & no additional complaints except as documented Physical Exam General General appearance: alert and in no apparent distress Head Head exam: atraumatic and normocephalic Eye Eye exam: Present normal appearance, PERRL and EOMI ENT ENT exam: Present normal oropharynx, mucous membranes dry and normal external ear exam Neck Neck exam: Present normal inspection, full ROM and trachea midline; Absent tenderness Chest Chest inspection: Present normal inspection and symmetric chest wall rise; Absent tenderness Respiratory Respiratory exam: Present normal lung sounds bilaterally; Absent respiratory distress, wheezes, stridor or accessory muscle use Cardiovascular Cardiovascular exam: Present normal rhythm and tachycardia Abdominal Exam Abdominal exam: Present soft; Absent distention, tenderness or guarding Extremities Exam Extremities exam: Present normal inspection, full ROM and normal capillary refill; Absent tenderness or edema Back Exam Back exam: Present normal inspection and full ROM; Absent tenderness Neurological Exam Neurological exam: Present alert, oriented X3, CN II-XII intact and normal gait; Absent motor sensory deficit Psychiatric Psychiatric exam: Present normal affect and normal mood Skin Skin exam: Present warm and dry Medical Decision Making Medical Records Medical records reviewed: Yes I reviewed the patient's medical records. Screening: Per USPSTF and CDC recommendations, given the prevalence of disease in our region, it is our hospital?s policy to screen for HIV and viral Hepatitis for all patients aged 18 and over and those with ongoing risk factors. Lul Inquiry Pt receiving controlled substance: No Vital Signs: 09/14/24 11:13 09/14/24 11:15 09/14/24 11:31 Temperature 98.5 F Temperature Source Oral Pulse Rate 143 H Pulse Rate [Apical] 140 H Respiratory Rate 18 27 H Blood Pressure 132/79 Blood Pressure [Left Arm] 149/87 H Blood Pressure Mean 96 Blood Pressure Mean [Left Arm] 107 Blood Pressure Source [Left Arm] Automatic Cuff Blood Pressure Position [Left Arm] Sitting 02 Sat by Pulse Oximetry 98 97 Oxygen Delivery Method Room Air 09/14/24 11:31 09/14/24 11:45 09/14/24 12:00 Temperature Temperature Source Pulse Rate 134 H 123 H 117 H Pulse Rate [Apical] Respiratory Rate 25 H 22 21 Blood Pressure Blood Pressure [Left Arm] Blood Pressure Mean Blood Pressure Mean [Left Arm] Blood Pressure Source [Left Arm] Blood Pressure Position [Left Arm] 02 Sat by Pulse Oximetry 96 95 94 L Oxygen Delivery Method 09/14/24 12:00 09/14/24 12:15 09/14/24 12:30 Temperature Temperature Source Pulse Rate 109 H 108 H Pulse Rate [Apical] Respiratory Rate 17 Blood Pressure 123/78 118/71 Blood Pressure [Left Arm] Blood Pressure Mean 93 86 Blood Pressure Mean [Left Arm] Blood Pressure Source [Left Arm] Blood Pressure Position [Left Arm] 02 Sat by Pulse Oximetry 96 Oxygen Delivery Method 09/14/24 13:30 09/14/24 14:00 09/14/24 14:40 Temperature 98.5 F Temperature Source Pulse Rate 100 H 100 H 107 H Pulse Rate [Apical] Respiratory Rate 18 14 Blood Pressure 105/72 L 101/70 L 107/67 L Blood Pressure [Left Arm] Blood Pressure Mean 77 Blood Pressure Mean [Left Arm] Blood Pressure Source [Left Arm] Blood Pressure Position [Left Arm] 02 Sat by Pulse Oximetry 97 Oxygen Delivery Method Room Air Room Air Lab Data Lab results reviewed: Yes I reviewed the patient's lab results. Lab Results 09/14/24 11:20: WBC 7.5, RBC 4.92, Hgb 14.2, Hct 42.0, MCV 85.4, MCH 28.8, MCHC 33.8, RDW 13.2, Plt Count 265, MPV 6.9 L, Neut % (Auto) 83.8 H, Lymph % (Auto) 9.7 L, [place] % (Auto) 5.3, Eos % (Auto) 1.0, Baso % (Auto) 0.3, Neut # (Auto) 6.3, Lymph # (Auto) 0.7, [place] # (Auto) 0.4, Eos # (Auto) 0.1, Baso # (Auto) 0.0, Sodium 133 L, Potassium 3.7, Chloride 105, Carbon Dioxide 21 L, Anion Gap 10.7, BUN 4 L, Creatinine 0.50 L, Estimated Creat Clear 194, Estimated GFR 143, Est GFR ( Amer) 173, Glucose 93, Calcium 9.1, Phosphorus 3.6, Magnesium 1.7, Total Bilirubin 0.4, AST 42 H, ALT 36, Alkaline Phosphatase 116, Total Protein 7.0, Albumin 3.7, Globulin 3.3 H, Albumin/Globulin Ratio 1.1, Procalcitonin 0.050, TSH 0.19 L, Thyroxine (T4) 17.8 H 09/14/24 11:59: Lactate 0.7, SARS-CoV-2 (PCR) Not detected, Influenza A Untype (PCR) Not detected, Influenza Type B (PCR) Not detected 09/14/24 11:20 09/14/24 11:20 Orders (Tests/Meds): ED MEDICATIONS Discontinued Medications Generic Name Dose Route Start Last Admin Trade Name Carissa PRN Reason Stop Dose Admin Acetaminophen 1,000 mg 09/14/24 11:23 09/14/24 11:30 Acetaminophen 1,000mg/100ml Vial IV 09/14/24 11:24 1,000 mg ONCE ONE Administration Lactated Ringer's 1,000 mls @ 999 mls/hr 09/14/24 11:23 09/14/24 11:31 Lactated Ringer's 1000 Ml Bag IV 09/14/24 12:23 999 mls/hr .Q1H1M ONE Administration Lactated Ringer's 1,000 mls @ 999 mls/hr 09/14/24 12:15 09/14/24 12:24 Lactated Ringer's 1000 Ml Bag IV 09/14/24 13:15 999 mls/hr .Q1H1M ONE Administration Ondansetron HCl 4 mg 09/14/24 11:23 09/14/24 11:30 Ondansetron 4mg/2ml Vial IV 09/14/24 11:24 4 mg ONCE ONE Administration Propranolol HCl 30 mg 09/14/24 12:55 09/14/24 13:03 Propranolol 20mg Tab PO 09/14/24 12:56 30 mg ONCE ONE Administration ORDERS Category Date Time Status POCUS Point of Care (ER Only) Stat Exams 09/14/24 11:35 Completed Complete Blood Count Auto Diff Stat Lab 09/14/24 11:20 Completed Comprehensive Metabolic Panel Stat Lab 09/14/24 11:20 Completed Lactic Acid Stat Lab 09/14/24 11:59 Completed Magnesium Stat Lab 09/14/24 11:20 Completed Phosphorous Stat Lab 09/14/24 11:20 Completed Procalcitonin Stat Lab 09/14/24 11:20 Completed Rapid PCR Covid and Flu A/B Stat Lab 09/14/24 11:59 Completed T4 (Thyroxine) Stat Lab 09/14/24 11:20 Completed TSH [Thyroid Stimulating Hormone] Stat Lab 09/14/24 11:20 Completed ECG Data Tracing #1: I reviewed this ECG and interpreted as documented below: Sinus tachycardia with a ventricular of [address] changes concerning for ischemia. Normal axis and intervals. ECG initial impression date: 09/14/24 ECG initial impression time: 11:19 Medical Decision Narrative: In summary, this patient is a 34-year-old female presenting to the Emergency Department for evaluation of cough, congestion, and high heart rate. Differential diagnoses considered include but are not limited to viral syndrome, dehydration, pneumonia, sepsis, electrolyte derangement, respiratory failure. Ruling out the most morbid conditions drove assessment. I reviewed patient's past medical records and noted PCP evaluation today as well as recent gynecology evaluations in the setting of . On exam, the patient is lying in bed in no acute distress. She is tachycardic, but otherwise vitals are reassuring. No hypoxia, tachypnea, or other concerns. Workup included CBC, CMP, magnesium, phosphorus, procalcitonin, lactic acid, TSH, T4, viral swab. I performed [id number] ultrasound of the patient's heart as well as of her baby. Cardiac ultrasound is reassuring. She is tachycardic but no pericardial effusion, no heart right heart strain. Baby has good movement, normal heart rate. Overall, feel the patient likely has a viral syndrome causing her symptoms and tachycardia. Patient was given IV acetaminophen, IV Zofran, and a liter bolus of IV fluids to assess for improvement. EKG demonstrates sinus tachycardia without acute ST changes or abnormal intervals. On reassessment, the patient is resting calmly with improvement in heart rate from the 140s to 1 teens/20s, but she still tachycardic. She remains normotensive with normal oxygen saturation. She is not in any distress. Labs demonstrate concerns for mild hyponatremia and mildly low CO2, likely related to decreased oral intake. She also has an AST of 42 right at the upper limits of normal, but otherwise labs are very reassuring. No significant thrombocytopenia or elevation liver enzymes otherwise. Patient does have low TSH and elevated T4 concerning for hyperthyroidism. I called and had an interactive discussion with Dr. Vidal, the patient's [employer] who advised she recommends starting the patient on a beta-macario. I did initiate the patient on propranolol. She was given first dose here which she tolerated very well with improvement in her heart rate to the low 100s. At this time, I feel that she is appropriate for discharge home with very close follow-up with [employer]. I called and made her an appointment with them for 2 days from now. Patient agreeable with this plan. She was given prescription for propranolol, instructions for supportive management, and strict return precautions. She was discharged after all questions were answered. Procedures Limited Ultrasound Findings:: Limited cardiac ultrasound Indication: Tachycardia Identified cardiac views: [-Cardiac parasternal long axis] [-Cardiac parasternal short axis] [-Cardiac apical four-chamber] Findings: [-Cardiac activity present -Gross wall motion normal -Pericardial effusion absent -Right heart strain absent] Impression: -[From above] Images were saved to permanent archive The study was technically adequate CPT: 14762 This study was performed by me, and I personally interpreted all images/videos. Based on my clinical judgement, these images were adequate and did not necessitate further imaging. Interpretation:: Limited OB ultrasound Indication: with tachycardia Identified structures: Uterus, palatal Carter Findings: Uterus: Definitive IUP FHR: 158 Cul de sac: Free fluid absent Impression: -IUP: Present, viable. heart rate 158. -Ectopic : Absent -Free fluid: Absent Images were saved to permanent archive The study was technically adequate CPT Transabdominal: 74307-48 This study was performed by md, and I personally interpreted all images/videos. Based on my clinical judgement, these images were adequate and did not necessitate further imaging. Critical Care Critical Care Time Critical Care Time: No
[2024-09-14 12:05] LABS: Alanine Aminotransferase 36 U/L (12-78); Albumin Level 3.7 g/dl (3.5-5.0); Albumin/Globulin Ratio 1.1 (1.1-1.8); Alkaline Phosphatase 116 U/L (38-126); Anion Gap 10.7 mEq/L (5-15); Aspartate Amino Transferase 42 U/L (14-36); Bilirubin,Total 0.4 mg/dl (0.2-1.3); Blood Urea Nitrogen 4 mg/dl (7-17); Calcium 9.1 mg/dl (8.4-10.2); Carbon Dioxide 21 mmol/L (22.0-30.0); Chloride 105 mmol/L (98-107); Creatinine Clearance Estimated 194 mL/min (50-200); Estimated Glomerular Filt Rate 143 ml/min (>60); GFR (African American) 173 ML/MIN (>60); Globulin 3.3 g/dL (1.3-3.2); Glucose 93 mg/dl (74-100); Magnesium 1.7 mg/dl (1.6-2.3); Phosphorous 3.6 mg/dl (2.5-4.5); Potassium 3.7 mmoL/L (3.5-5.1); Sodium 133 mmol/L (136-145)
[2024-09-14 12:06] LABS: Coronavirus 19, PCR Not Detected (NotDetected); Influenza A, PCR Not Detected (NotDetected); Influenza B, PCR Not Detected (NotDetected)
[2024-09-14 12:17] LABS: Lactic Acid 0.7 mmol/L (0.7-2.1)
[2024-09-14 12:22] LABS: T4 (Thyroxine) 17.8 ug/dl (5.53-11.0)
[2024-09-14 12:35] LABS: Thyroid Stimulating Hormone 0.19 uIU/mL (0.465-4.68)
--- NOTE | 2024-09-14 12:48 | PC.NURSE ---
DR JUAN JOSÉ JULIAN
--- NOTE | 2024-09-14 12:49 | PC.NURSE ---
DR ANGEL SPEAKING WITH DR RUANO (OB)
--- NOTE | 2024-09-14 12:59 | PC.NURSE ---
DR ANGEL AT BEDSIDE TO UPDATE PT
[2024-09-14] MEDS: PROPRANOLOL 20MG TAB 30 MG PO (13:03)
--- NOTE | 2024-09-14 13:09 | PC.NURSE ---
REGULAR LUNCH TRAY REQUESTED FROM PT
--- NOTE | 2024-09-14 13:17 | PC.NURSE ---
REGULAR LUNCH TRAY SET-UP FOR PT
== END 2024-09-14 14:41 | disposition home or self-care (01) ==
PROVIDERS: Emergency Provider Emergency Medicine
DX: J06.9 Acute upper respiratory infection, unspecified (principal); O99.280 Endocrine, nutritional and metabolic diseases complicating pregnancy, unspecified trimester; R00.0 Tachycardia, unspecified; R05.9 Cough, unspecified; R07.89 Other chest pain; R09.81 Nasal congestion
CPT/HCPCS: 80050; 80053; 83605; 83735; 84100; 84145; 84436; 84443; 85025; 87636; 93005; 96361; 96374; 96375; 99284; J0131; J2405; J7120

== ENCOUNTER 2024-09-16 14:17 | Outpatient (CLI) | payer BC, SELFPAY ==
[2024-09-16 16:52] LABS: Free T4 (Free Thyroxine) 1.02 ng/dl (0.78-2.19)
[2024-09-18 02:10] LABS: Thyroid Peroxidase Antibodies 10 IU/mL (0-34); Triiodothyronine (T3) Total 254 ng/dL (71-180)
[2024-09-20 17:09] LABS: Thyroid Stimulating Immunoglob <0.10 IU/L (0.00-0.55)
== END 2024-09-16 23:59 | disposition home or self-care (01) ==
LOC: LAB 14:19
PROVIDERS: PCP Nurse Practitioner Family; Visit Provider Obstetrics & Gynecology
DX: O99.280 Endocrine, nutritional and metabolic diseases complicating pregnancy, unspecified trimester (principal); E05.90 Thyrotoxicosis, unspecified without thyrotoxic crisis or storm
CPT/HCPCS: 36415; 84439; 84445; 84480; 86376

== ENCOUNTER 2024-09-20 11:04 | Outpatient (CLI) | payer BC, SELFPAY ==
--- NOTE | 2024-09-20 11:06 | US_ITS ---
PROCEDURE: US OB TRANSVAGINAL CLINICAL INDICATION: Check Cervical Length COMPARISON: US US OB TRANSVAGINAL from 07/20/2024 FINDINGS: Transabdominal sonographic images of the pelvis were obtained. The following parameters are obtained: From her established due date she is 16weeks 0 days Viable fetus in the breech presentation with a right lateral placenta grade 1. The cervix measures 5.35 cm heart rate: 142bpm bpm. Amniotic fluid: Appears normal IMPRESSION: 1. Viable fetus in the breech presentation with a right lateral placenta grade 1. 2. The amniotic fluid appears normal. 3. Heart tones are seen. 4. The cervix measures 5.35 cm and appears normal. Dictated by: Jake Pickett MD 09/21/2024 08:11 Jake Pickett MD in [facility] 09/21/2024 08:11
== END 2024-09-20 23:59 | disposition home or self-care (01) ==
LOC: RAD 11:05
PROVIDERS: PCP Nurse Practitioner Family; Visit Provider Obstetrics & Gynecology
DX: O20.9 Hemorrhage in early pregnancy, unspecified (principal); O34.01 Maternal care for unspecified congenital malformation of uterus, first trimester; Q51.3 Bicornate uterus; Z36.86 Encounter for antenatal screening for cervical length; Z3A.16 16 weeks gestation of pregnancy
CPT/HCPCS: 76817

== ENCOUNTER 2024-11-25 15:54 | Outpatient (CLI) | payer BC, SELFPAY ==
[2024-11-25 19:14] LABS: Free T4 (Free Thyroxine) 0.75 ng/dl (0.78-2.19)
[2024-11-25 19:18] LABS: T4 (Thyroxine) 15.9 ug/dl (5.53-11.0)
[2024-11-25 19:31] LABS: Thyroid Stimulating Hormone 1.24 uIU/mL (0.465-4.68)
[2024-11-27 10:11] LABS: Triiodothyronine (T3) Free 3.2 pg/mL (2.0-4.4); Triiodothyronine (T3) Total 259 ng/dL (71-180)
== END 2024-11-25 23:59 | disposition home or self-care (01) ==
LOC: LAB 15:56
PROVIDERS: PCP Nurse Practitioner Family; Visit Provider Internal Medicine
DX: E05.90 Thyrotoxicosis, unspecified without thyrotoxic crisis or storm (principal)
CPT/HCPCS: 36415; 84436; 84439; 84443; 84480; 84481

== ENCOUNTER 2024-12-08 17:49 | Outpatient (CLI) | payer BC, SELFPAY ==
[2024-12-08 20:43] LABS: Free T4 (Free Thyroxine) 1.14 ng/dl (0.78-2.19)
[2024-12-08 21:49] LABS: Thyroid Stimulating Hormone 1.68 uIU/mL (0.465-4.68)
[2024-12-11 04:26] LABS: Triiodothyronine (T3) Free 3.6 pg/mL (2.0-4.4)
== END 2024-12-08 23:59 | disposition home or self-care (01) ==
LOC: LAB 17:50
PROVIDERS: PCP Internal Medicine; Visit Provider Internal Medicine
DX: E05.90 Thyrotoxicosis, unspecified without thyrotoxic crisis or storm (principal)
CPT/HCPCS: 36415; 84439; 84443; 84481

== ENCOUNTER 2024-12-17 08:15 | Outpatient (CLI) | payer BC, SELFPAY ==
[2024-12-17 10:01] LABS: Basophils % 0.4 % (0.1-2.0); Eosinophils # 0.1 K/mm3 (0.0-0.4); Eosinophils % 1.1 % (0.1-12.0); Hematocrit 35.4 % (37.0-47.0); Hemoglobin 11.9 g/dL (12.2-16.2); Lymphocytes # 1.8 K/mm3 (0.7-4.5); Mean Corpuscular HGB Conc 33.6 g/dL (31.8-35.4); Mean Corpuscular Hemoglobin 29.7 pg (27.0-31.2); Mean Corpuscular Volume 88.3 fl (81-99); Mean Platelet Volume 9.4 fl (7.4-10.4); Monocytes # 0.4 K/mm3 (0.1-1.0); Monocytes % 4.4 % (1.7-9.3); Neutrophils # 7.1 K/mm3 (1.8-7.8); Neutrophils % 74.5 % (37.0-80.0); Platelet Count 305 K/mm3 (142-424); Red Blood Count 4.01 M/mm3 (4.20-5.40); Red Cell Distribution Width 13.2 % (11.5-17.5); White Blood Count 9.6 K/mm3 (4.8-10.8)
[2024-12-17 10:06] LABS: Glucose 1 Hour 134 mg/dL (74-100)
[2024-12-17] MEDS: RHO(D) IMMUNE GLOBULIN 1,500 UNIT (300MCG) SYRINGE 300 MCG IM (10:53)
[2024-12-17 10:55] VITALS: BP 111/63; PULSE 90; RESP 17; TEMP 37.1; O2SAT 98
[2024-12-17 13:58] LABS: RPR W/RFX Titers Nonreactive (Nonreactive)
== END 2024-12-17 11:10 | disposition home or self-care (01) ==
LOC: INF 08:16
PROVIDERS: PCP Nurse Practitioner Family; Visit Provider Obstetrics & Gynecology
DX: O36.0120 Maternal care for anti-D [Rh] antibodies, second trimester, not applicable or unspecified (principal); Z67.91 Unspecified blood type, Rh negative; Z3A.25 25 weeks gestation of pregnancy
CPT/HCPCS: 36415; 82947; 85025; 86592; 96372; J2790

== ENCOUNTER 2025-01-18 08:11 | Outpatient (CLI) | payer BC, SELFPAY ==
[2025-01-18 08:54] LABS: Glucose,Fasting 82 mg/dl (74-100)
[2025-01-18 09:23] LABS: Free T4 (Free Thyroxine) 0.83 ng/dl (0.78-2.19)
[2025-01-18 09:37] LABS: Thyroid Stimulating Hormone 1.92 uIU/mL (0.465-4.68)
[2025-01-18 09:38] LABS: Thyroid Stimulating Hormone 1.98 uIU/mL (0.465-4.68)
[2025-01-18 10:21] LABS: Glucose 1 Hour 135 mg/dL (74-100)
[2025-01-18 11:45] LABS: Glucose 2 Hour 117 mg/dL (74-100)
[2025-01-18 13:02] LABS: Glucose 3 Hour 93 mg/dL (74-100)
[2025-01-19 08:17] LABS: FSH <0.3 mIU/mL (.); LH <0.3 mIU/mL (.); Progesterone 40.4 ng/mL (.); Triiodothyronine (T3) Free 3.2 pg/mL (2.0-4.4)
[2025-01-19 09:31] LABS: Insulin Level Total 12.8 uIU/mL (2.6-24.9)
[2025-01-19 12:32] LABS: Testosterone,Total 44 ng/dL (8-60)
== END 2025-01-18 23:59 | disposition home or self-care (01) ==
LOC: LAB 08:12
PROVIDERS: Internal Medicine; PCP Nurse Practitioner Family; Visit Provider Obstetrics & Gynecology
DX: E34.9 Endocrine disorder, unspecified (principal); O34.01 Maternal care for unspecified congenital malformation of uterus, first trimester; Q51.3 Bicornate uterus
CPT/HCPCS: 36415; 82670; 82951; 83001; 83002; 83525; 84144; 84403; 84439; 84443; 84481

== ENCOUNTER 2025-02-03 14:30 | Outpatient (CLI) | payer BC, SELFPAY | END 2025-02-03 23:59 | disposition home or self-care (01) | LOC: LAB.DROPOF 02-04 13:20 | PROVIDERS: PCP Obstetrics & Gynecology; Visit Provider Obstetrics & Gynecology | DX: Z34.83 Encounter for supervision of other normal pregnancy, third trimester (principal); Z3A.35 35 weeks gestation of pregnancy | CPT/HCPCS: 86403 ==

== ENCOUNTER 2025-03-01 03:41 | Inpatient (IN) | payer BC, SELFPAY ==
[2025-03-01 03:44] VITALS: BMI 34.4
[2025-03-01 03:56] VITALS: BP 138/76; PULSE 102; RESP 16; TEMP 36.9; O2SAT 98; BMI 34.4
[2025-03-01 04:41] LABS: Microscopic, Urine URINE MICROSCOPIC (MICROSCOPIC)
[2025-03-01 04:43] LABS: Basophils % 0.2 % (0.1-2.0); Eosinophils # 0.1 Kmm3 (0.0-0.4); Eosinophils % 0.9 % (0.1-12.0); Hematocrit 34.2 % (37.0-47.0); Hemoglobin 11.5 g/dL (12.2-16.2); Immature Granulocytes # 0.08 10^3uL; Immature Granulocytes % 0.7 %; Lymphocytes # 2.4 K/mm3 (0.7-4.5); Lymphocytes % 22.2 % (10-50); Mean Corpuscular HGB Conc 33.6 g/dL (31.8-35.4); Mean Corpuscular Hemoglobin 28.8 pg (27.0-31.2); Mean Corpuscular Volume 85.7 fl (81-99); Mean Platelet Volume 9.5 fl (7.4-10.4); Monocytes # 0.5 K/mm3 (0.1-1.0); Neutrophils # 7.6 K/mm3 (1.8-7.8); Nucleated Red Blood Cells # 0 10^3/uL; Nucleated Red Blood Cells % 0 %; Platelet Count 295 K/mm3 (142-424); Red Blood Count 3.99 M/mm3 (4.20-5.40); Red Cell Distribution Width 13.7 % (11.5-17.5); Red Cell Distribution Width-SD 42.5 fL; White Blood Count 10.8 K/mm3 (4.8-10.8)
[2025-03-01 04:46] LABS: Appearance,Urine CLEAR (Clear); Bilirubin,Urine Negative (Negative); Blood, Urine Negative (Negative); Color,Urine YELLOW (Yellow); Glucose,Urine (UA) Negative (Negative); Ketones,Urine Negative (Negative); Leukocyte Esterase,Urine 1+ (Negative); Nitrate,Urine Negative (Negative); Protein,Urine Negative (Negative); Specific Gravity, Urine 1.015 (1.005-1.030); Urobilinogen,Urine 0.2 EU/dl (0.2)
[2025-03-01 04:59] LABS: Bacteria,Urine Trace /lpf
[2025-03-01] MEDS: DEXTROSE 5%-LACTATED RINGERS 1,000 ML 125 ML IV (05:14)
[2025-03-01] MEDS: OXYTOCIN/RINGERS LACTATE 30 UNITS/500 ML BAG IV (05:16)
[2025-03-01 07:39] VITALS: BP 121/75; PULSE 90; RESP 18; TEMP 36.7; O2SAT 98
--- NOTE | 2025-03-01 07:41 | HMH.PHAINT1 ---
Pharmacy Intervention Comments: MEDICATION RECONCILIATION COMPLETED ON PATIENT USING EXTERNAL FILL HISTORY FROM PHARMACY. -TERESITA MCGOVERN, MANDEEPD
--- NOTE | 2025-03-01 08:46 | P.HP_ITS ---
History of Present Illness *Admission Date: 03/01/25 *Reason for visit:: Induction *History of present illness: Lainey Carrizales is a 34-year-old at 39 weeks and 1 days gestation who presented to labor and delivery for induciton of labor. Her XI: 03/07/25 is based on LMP c/w 6 & 9 week US. Her has been hyperthyroidism and AC in the 90+%tile. On presentation patient endorsed good movement and denies any leakage of fluid or vaginal bleeding. O-, antibody pending, rubella immune, hepatitis B negative, hepatitis C negative, RPR negative, HIV negative 1 hour GTT: 134 secondary to large AC 3hr GTT completed: 82/135/117/93 GBS negative PFSH PFS Disclaimer: The information contained in this section may have been updated after the patient was seen, as this information can be updated by other users. Medical History (Updated 03/01/25 @ 08:58 by Luciana Vidal DO) Bicornuate uterus Encounter for IUD insertion Decreased libido Nexplanon in place Breast mass, right UTI (urinary tract infection) Strep throat Otitis media Gallstone pancreatitis Common bile duct stone Surgical History Hx of breast biopsy History of cholecystectomy Family History Grandmother Cancer Heart attack Hypertension Grandfather Heart attack Other Coronary artery disease Diabetes Social History (Updated 03/01/25 @ 05:31 by Karo Salas RN) Smoking Status: Never smoker alcohol intake: never substance use type: denies use current occupational status: employed Travel in the last 8 weeks?: None household members: spouse housing: house 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 current occupational exposures/hazards: No caffeine: No Have you lived/traveled outside [place] in past 30 days?: No Contact w/someone who lives/traveled outside [place] past 30 days?: No Exposure to someone with infectious disease in past 14 days?: No Do you have a fever (greater than 100.4 F or 38 C)?: No Have you tested positive for COVID-19?: No Exposed to someone with COVID-19 in past 14 days?: No Do you have a sore throat?: No Do you have a cough?: No Do you have any weakness?: No Are you experiencing any nausea/vomitting?: No Do you have any diarrhea?: No Are you experiencing any unusual bleeding?: No Do you have any muscle aches/pain?: No Do you have any abdominal pain?: No Are you experiencing loss of taste or smell?: No Other Medical History Have you received the Flu Vaccine for this season: No Have you received the Pneumonia Vaccine: No Review of Systems Review of Systems Review of systems (narrative): Review of Systems Constitutional: Denies fever, chills, and sweats Eyes: Denies vision change/ pain Respiratory: Denies cough and shortness of breath Cardiovascular: Denies chest pain and lightheadedness Gastrointestinal: Denies abdominal pain with contractions. Denies nausea, vomiting. Genitourinary: Denies dysuria and incontinence Musculoskeletal: Denies shoulder pain and back pain Neurological: Denies change in speech or headaches Meds Home Medications and Allergies Home Medications ?Medication ?Instructions ?Recorded ?Confirmed ?Type bi-ywi-mxtci 180 mcg-om3 32.5 1 tab PO DAILY 08/03/24 03/01/25 History ve-nxs-rnm-other yf3a-tkwe chew tablet ( Gummies (DHA-EPA)) levocetirizine 5 mg tablet (Xyzal) 5 mg PO DAILY 12/2103/01/25 History methimazole 5 mg tablet 5 mg PO DAILY 02/24/2503/01 History New Prescriptions to Start Prescriptions: Allergies Allergy/AdvReac Type Severity Reaction Status Date / Time No Known Allergies Allergy Verified 03/01/25 05:28 Exam Data for Last 24 hours Vital signs and Labs for Last 24 Hours: Temp Pulse Resp BP Pulse Ox O2 Del Method 98.1 F 90 18 121/75 98 Room Air 03/01/25 07:39 03/01/25 07:39 03/01/25 07:39 03/01/25 07:39 03/01/25 07:39 03/01/25 07:39 Laboratory Results - last 24 hr 03/01/25 04:18: Urine Color Yellow, Urine Appearance Clear, Urine pH 6.0, Ur Specific [place] 1.015, Urine Protein Negative, Urine Glucose (UA) Negative, Urine Ketones Negative, Urine Blood Negative, Urine Nitrate Negative, Urine Bilirubin Negative, Urine Urobilinogen 0.2, Ur Leukocyte Esterase 1+ A, Urine RBC 3-5, Urine WBC 5-10, Ur Squamous Epith Cells 3-5, Urine Bacteria Trace 03/01/25 04:25: WBC 10.8, RBC 3.99 L, Hgb 11.5 L, Hct 34.2 L, MCV 85.7, MCH 28.8, MCHC 33.6, RDW 13.7, Plt Count 295, MPV 9.5, Neut % (Auto) 71.0, Lymph % (Auto) 22.2, [place] % (Auto) 5.0, Eos % (Auto) 0.9, Baso % (Auto) 0.2, Neut # (Auto) 7.6, Lymph # (Auto) 2.4, [place] # (Auto) 0.5, Eos # (Auto) 0.1, Baso # (Auto) 0.0, Blood Type O Negative, Antibody Screen Positive I & O for Last 24 hours: Intake & Output 02/26/25 02/27/25 02/28/25 03/01/25 23:59 23:59 23:59 23:59 Weight 188 lb Narrative: General: patient is alert oriented in no acute distress and responds appropriately to questions. HEENT: NCAT, EOMI, moist mucous membranes, neck supple with full ROM Cardiovascular: RRR +S1/S2, no murmurs or rubs Pulmonary: Clear to auscultation bilaterally, nonlabored breathing, symmetric chest rise Abdominal: Gravid abdomen appropriate for gestation. No guarding, rebound, or tenderness noted. Extremities: trace edema, no tenderness or cyanosis noted Skin: Normal turgor, intact, warm. Negative for erythema, pallor, petechia, or lesions Neurologic: Negative for sensory or motor deficit Psychiatric: Normal affect, normal thought process, good judgment and insight, no depression or anxious mood appreciated. *Routine HEENT Exam Head: Present normocephalic and atraumatic Eye: Present EOMI, PERRL and normal accommodation; Absent conjunctival icterus, scleral injection, nystagmus or exophthalmos ENT: Present mucous membranes moist *Routine Respiratory Exam Respiratory: Present CTA bilaterally, normal respiratory effort, able to speak in complete sentences and symmetric chest movement; Absent accessory muscle use, decreased breath sounds, rales, respiratory distress, wheezes, distant breath sounds or diminished air movement *Routine Cardiovascular Exam Cardiovascular: Present RRR, Normal S1 and Normal S2; Absent murmur or gallop *Routine Abdominal Exam Abdominal: Present soft and normoactive bowel sounds; Absent tenderness, distended, rebound or guarding *Routine Rectal Exam Rectal:: deferred *Routine Genitalia Exam Genitalia:: normal female Assessment and Plan *Assessment and plan (1) LGA (large for gestational age) fetus: Status: Acute Category: Medical (2) Hyperthyroidism affecting : Status: Acute Category: Medical Code(s): O99.280 - Endocrine, nutritional and metabolic diseases complicating , unspecified trimester; E05.90 - Thyrotoxicosis, unspecified without thyrotoxic crisis or storm (3) 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, antepartum: Problem Comment: in the right horn Status: Acute Category: Medical Code(s): O34.01 - Maternal care for unspecified congenital malformation of uterus, first trimester; Q51.3 - Bicornate uterus (4) Encounter for induction of labor: Status: Acute Category: Medical Code(s): Z34.90 - Encounter for supervision of normal , unspecified, unspecified trimester Plan - Monitor vitals - Admit to L&D for induction of labor - Plan for induction with Pitocin, per protocol - External FHR and TOCO monitor - Exam this mornin/50/-3/moderate consistency/anterior position. AROM, clear fluid - GBS neg/ Blood type: O- - Hemoglobin: 11.5, Plt: 295 - Anticipate vaginal delivery of female : Asya Bond
[2025-03-01] MEDS: OXYTOCIN/RINGERS LACTATE 30 UNITS/500 ML BAG 999 UNITS IV (11:54)
[2025-03-01] MEDS: OXYTOCIN/RINGERS LACTATE 30 UNITS/500 ML BAG 40 UNITS IV (12:05)
--- NOTE | 2025-03-01 12:30 | EXP.DN ---
Delivery Note Delivery Date:: 03/01/25 Delivery Time:: 11:52 Anesthesia Type: None Was labor medically induced?: Yes Induction method: per pitocin protocol Gestational age (weeks): 39 delivered prior to 39 weeks?: No Infant Gender: Female at 1 minute: 7 at 5 minutes: 8 Delivery Procedure:: Preoperative diagnosis: 1. at 39 completed this weeks gestation, vertex 2. Rh negative 3. GBS negative 4. Hypothyroidism Postoperative diagnosis: 1. at 39 completed this weeks gestation, vertex 2. Rh negative 3. GBS negative 4. Hypothyroidism EBL: 100mL Specimen: 1. Cord blood Findings: 1. Liveborn viable female : Asya Bond. Apgars 7/8 at 1 and 5 minutes respectively. Weight: 7lb 9oz 2. 2nd degree midline perineal laceration Complications: None Procedure: Nonoperative spontaneous vaginal delivery Pt presented for induction of labor at 39 weeks this morning. Pitocin was started per protocol. She had artificial rupture membranes around 830 this morning revealing clear fluid. Patient progressed through labor normally. I was called at 1148 and given report that the patient was 8 cm. I arrived on the unit at 1152 as the lower extremities were delivering. Per nursing it was a noncomplicated atraumatic delivery. There was no nuchal cord. The anterior right shoulder delivered, followed by the posterior shoulder without dystocia. The body and lower extremities delivered without difficulty. After approximately 30 seconds the umbilical cord was clamped and cut and the infant was taken to the warmer for evaluation secondary to color. While in the warmer 's cry improved and the transitioned well with color improving as well. The placenta delivered with cord traction and suprapubic contertraction. Pitocin was started. The uterus was firm and bleeding was minimal. The perineum, vaginal de santiago, cervix, and paraurethral area were inspected thoroughly. There was a second-degree midline perineal laceration. 1% Lidocaine, 10ml, was injected during the repair due to patient discomfort. The laceration was repaired in the usual fashion using 2-0 Vicryl suture. The laceration was hemostatic. The cervix and vaginal de santiago were inspected and noted to be hemostatic. This concluded the delivery. The patient was counseled regarding the events of the delivery and repair. The patient tolerated the delivery well. All counts were correct by nursing. Mother and infant were doing well and bonding upon my leaving the delivery room. Laceration:: vaginal Placental Delivery Description: Spontaneous
[2025-03-01 15:10] LABS: RPR W/RFX Titers Nonreactive (Nonreactive)
[2025-03-01] MEDS: LANOLIN CREAM 40GM TP (19:48)
[2025-03-01] MEDS: IBUPROFEN 400 MG TABLET 800 MG PO (19:48)
[2025-03-01] MEDS: BENZOCAINE-MENTHOL SPRAY 56GM CAN TP (19:48)
[2025-03-02 06:08] LABS: Hematocrit 33.4 % (37.0-47.0)
[2025-03-02 08:23] VITALS: BP 115/68; PULSE 81; RESP 18; TEMP 36.8; O2SAT 99
[2025-03-02] MEDS: IBUPROFEN 400 MG TABLET 800 MG PO (08:28)
--- NOTE | 2025-03-02 16:27 | EXP.DC.SUM ---
General Admission date:: 03/01/25 Discharge date: 03/02/25 HPI HPI HPI: Lainey Carrizales is a 34-year-old at 39 weeks and 1 days gestation who presented to labor and delivery for induciton of labor. Her XI: 03/07/25 is based on LMP c/w 6 & 9 week US. Her has been hyperthyroidism and AC in the 90+%tile. On presentation patient endorsed good movement and denies any leakage of fluid or vaginal bleeding. O-, antibody pending, rubella immune, hepatitis B negative, hepatitis C negative, RPR negative, HIV negative 1 hour GTT: 134 secondary to large AC 3hr GTT completed: 82/135/117/93 GBS negative Hospital Course Hospital Course Hospital Course: Lainey Carrizales is a 34-year-old day #1 from a normal spontaneous vaginal delivery. She delivered a live viable female infant Asya Lynne who weighed 7 pounds 9 ounces. Apgars were 7 and 8 at 1 and 5 minutes respectively. She had a second-degree perineal laceration. Her was complicated by hyper thyroidism She has done well and has remained afebrile with her at her hospitalization. She is eating and drinking and ambulating. Her lochia is normal. She has O Rh- blood with anti-D antibodies. Infant's blood type is O- as well. She is rubella immune and was group B streptococcus negative. She will be discharged home to follow-up with Dr. Vidal in 2 weeks time. She will continue with her vitamins. She will take ibuprofen as well. She was given the usual instructions with respect to limiting her activity, driving and sexual activity. She was given instructions with respect to wound care. Her condition on discharge is stable and improved. Exam Data for Last 24 hours Vital signs and Labs for Last 24 Hours: Temp Pulse Resp BP Pulse Ox O2 Del Method 98.3 F 81 18 115/68 99 Room Air 03/02/25 08:23 03/02/25 08:23 03/02/25 08:23 03/02/25 08:23 03/02/25 08:23 03/02/25 08:23 Laboratory Results - last 24 hr 03/01/25 04:25: Antibody Identification Anti-D 03/02/25 05:14: Hgb 11.0 L, Hct 33.4 L I & O for Last 24 hours: Intake & Output 02/27/25 02/28/25 03/01/25 03/02/25 23:59 23:59 23:59 23:59 Weight 188 lb Microbiology Reports for the Last 24 Hours: Microbiology 03/01/25 04:18 Urine,Clean Catch Urine Culture - Final No growth. Constitutional Constitutional: no acute distress *Routine HEENT Exam Head: Present normocephalic Eye: Present EOMI and PERRL ENT: Present mucous membranes moist *Routine Neck Exam Neck: Present supple; Absent lymphadenopathy *Routine Respiratory Exam Respiratory: Present CTA bilaterally *Routine Cardiovascular Exam Cardiovascular: Present RRR *Routine Abdominal Exam Abdominal: Present soft and normoactive bowel sounds; Absent tenderness *Routine Extremities Exam Extremities: Absent cyanosis, clubbing or edema *Routine Skin Exam Skin: Present warm; Absent rash *Routine Neurological Exam Neurological: Present alert and oriented X3 Results Data Completed and Pending Labs on day of discharge: Labs from last 24 hours 03/02/25 03/01/25 05:14 04:25 Hgb 11.0 L Hct 33.4 L Antibody Identification Anti-D DS: Diagnosis Discharge Diagnosis (1) LGA (large for gestational age) fetus: Status: Acute (2) Hyperthyroidism affecting : Status: Acute Code(s): O99.280 - Endocrine, nutritional and metabolic diseases complicating , unspecified trimester; E05.90 - Thyrotoxicosis, unspecified without thyrotoxic crisis or storm (3) 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, antepartum: Status: Acute Code(s): O34.01 - Maternal care for unspecified congenital malformation of uterus, first trimester; Q51.3 - Bicornate uterus Problem details: in the right horn (4) Encounter for induction of labor: Status: Acute Code(s): Z34.90 - Encounter for supervision of normal , unspecified, unspecified trimester Meds Home Medications and Allergies Home Medications ?Medication ?Instructions ?Recorded ?Confirmed ?Type [id number] 180 mcg-om3 32.5 1 tab PO DAILY 08/03/24 03/01/25 History sk-xth-giw-other [id number]-[id number] chew tablet ( Gummies (DHA-EPA)) levocetirizine 5 mg tablet (Xyzal) 5 mg PO DAILY 12/21/24 03/01/25 History methimazole 5 mg tablet 5 mg PO DAILY 02/24/25 03/01/25 History acetaminophen 500 mg tablet 500 mg PO Q6H PRN fever or pain 03/02/25 Rx #30 tabs ibuprofen 800 mg tablet 800 mg PO Q8H PRN pain #60 tabs 03/02/25 Rx New Prescriptions to Start Prescriptions: acetaminophen Luciana Vidal ibuprofen Luciana Vidal Allergies Allergy/AdvReac Type Severity Reaction Status Date / Time No Known Allergies Allergy Verified 03/01/25 05:28 Discharge Plan Disposition Patient Disposition: Home, Self-Care Discharge Order Discharge Orders: Discharge Order (Routine); Ordered 03/02/25 Ordered By: Luciana Vidal Follow up Plan Follow up with: Luciana Vidal DO [Staff Physician, [employer]] - 03/16/25 9:00 am Prescriptions/Medication Reconciliation: New acetaminophen 500 mg tablet 500 mg PO Q6H PRN (Reason: fever or pain) Qty: 30 3RF ibuprofen 800 mg tablet 800 mg PO Q8H PRN (Reason: pain) Qty: 60 2RF Continued methimazole 5 mg tablet 5 mg PO DAILY levocetirizine [Xyzal] 5 mg tablet 5 mg PO DAILY Gummies (DHA-EPA) 180 mcg-32.5mg- 25 mg-7.5 mg tablet,chewable 1 tab PO DAILY Problem Reconciliation Problems Reviewed?: Yes Patient Discharge Instructions ACTIVITY: Continue current activity DIET: regular diet Additional Instructions: Congratulations on the delivery of your sweet baby girl. It is my privilege to be your doctor and I am so thankful I could be a part of your special day. Discharge: -Take 800 mg Ibuprofen every 8 hours as needed for pain. You can also take 500-1000 mg of Tylenol in between doses, every 6-8 hours. -Colace can be taken 1-2 times per day as you need to soften your stool. Make sure to drink at least 8 cups of water per day. -Iron supplements can make you constipated. You can take iron tablets every other day if constipation is too bad. -Nothing in the vagina for 6 weeks - no intercourse, douching, tampons. No tub baths or swimming pools. -Do not lift greater than 20pounds for 2 weeks, this is the equivalent of 2 gallons of milk. -Reasons to return to L&D or call On-Call doctor - fever (greater than 100.4) - heavy vaginal bleeding (soaking through 1 pad in less than 2 hours or passing clots that are egg sized) - vaginal discharge (malodorous and/or purulent) - severe headaches, leg tenderness/edema, or any other symptoms that warrant immediate medical attention. depression/blues - Normal to feel anxious/overwhelmed for first 2 weeks - Talk to your doctor if: anxiety lasts over 2 weeks, trouble bonding with baby, withdrawing from other family members, thoughts of harming yourself or others Blood pressure and preeclampsia instructions -Please call if greater than 2 values are higher than: 150 systolic (the top number) or 90 diastolic (the bottom number). -Please go to the emergency room or labor and delivery triage if any value is higher than: 160 systolic (the top number) or 110 diastolic (the bottom number). -Please call if unrelenting headache (does not go away with rest or Tylenol or ibuprofen), changes in vision (spots, floaters, flashes of light), chest pain, shortness of breath, or right upper quadrant (liver) abdominal pain. Luciana Vidal DO [facility] [phone] *Nothing in the Vagina for 6 weeks* *No strenuous activity* *No heavy lifting* *No tub baths until okay's by MD* Patient Instructions: Depression, Hemorrhage, DI for Labor and Delivery, Vaginal , DI for Pre-eclampsia, [facility] Post Discharge Instructions Print Language: Beninese Providers Primary Care Provider: Lexie Craft Admit Provider: Luciana Vidal Attending Provider: Luciana Vidal
== END 2025-03-02 17:00 | disposition home or self-care (01) | DRG 807 ==
PROVIDERS: Admitting Provider Obstetrics & Gynecology; PCP Nurse Practitioner Family; Visit Provider Obstetrics & Gynecology
DX: O36.63X0 Maternal care for excessive fetal growth, third trimester, not applicable or unspecified (principal); Z37.0 Single live birth; Z3A.39 39 weeks gestation of pregnancy; O99.284 Endocrine, nutritional and metabolic diseases complicating childbirth; O34.03 Maternal care for unspecified congenital malformation of uterus, third trimester; Q51.3 Bicornate uterus; O26.893 Other specified pregnancy related conditions, third trimester; Z67.41 Type O blood, Rh negative; O70.1 Second degree perineal laceration during delivery
CPT/HCPCS: 59025; 81001; 85014; 85018; 85025; 86592; 86850; 86870; 87086

== ENCOUNTER 2025-03-23 13:51 | Outpatient (CLI) | payer BC, SELFPAY ==
--- OUTSIDE RECORDS SUMMARY | 2025-03-23 13:54 | XMS_ITS | Data Portability ---
Author Organization [facility] Address [address] [place] [address] Assessment Encounter Date Assessment Date Assessment LastModified by Organization Details LastModified Time 11/20/2024 11/20/2024 Medications per plan below. Increase oral fluids. Follow up with [facility] as planned. May take tylenol OTC per package instructions PRN. Follow up if no improvement or worsening and as needed. Not available 11/20/2024 10:05:50 Plan of Treatment Reminders Order Date Submit Date Provider Last Modified By Organization Details Last Modified Time Details Appointments None recorded. Lab PPD (purified protein derivative) , skin test [address], [address] [place] [address], [id number], 4 19:18:02 Referral None recorded. Procedures None recorded. Surgeries None recorded. Imaging None recorded. Medication Orders amoxicillin 500 mg tablet 2024 025 [facility], [address] [place] [address], [id number], 5 10:42:48 Aplisol 5 tub. unit/0.1 mL intradermal injection solution 2023 024 [email or web address] [facility], [address] [place], [address], 5 09:39:34 amoxicillin 500 mg capsule 2021 022 [email or web address] [facility], [address] [place], [address], 5 09:39:25 amoxicillin 875 mg-cain iaken clavulanate 125 mg tablet 2021 022 EDWARD Pena [facility], [address] [place], [address], 09:00:24 Patient TargetsNo targets recorded. Patient Instructions Encounter Date Encounter Id Patient Instructions Last Modified By Organization Details Last Modified Time 11/20/2024 [id number] Acute Sinusitis: Care Instructions Not available 11/20/2024 10:01:09 Reason for Referral None Reported. Results Created Date Observation Date Name Description Value Unit Range Abnormal Flag Note LastModifiedBy Organization Detail LastModifiedTime 10/31/1910/31/2023 PPD (rosario fied prote in deriv ative ), skin test TB negati ve Not Available [address], [address], 10/29/2023 16:15:50 09/10/2008/27/2021 US breas t limit ed RT [facility] [address] [place] [address] Phone: Fax: Name: DAYTON CARRIZALES Exam Date: 2020 : 1989 Age 31 Gender : F Access ion: [id number] Physic ludmila: NAVNEET LEE Facili ty: [facility] Facili ty HSV: Exam: US BREAST LIMITE D RT Right breast ultras ound Histor y: Infect ion, red and painfu l lump. Findin gs: In the 3 o'cloc k right breast at the site of palpab le abnorm ality, there is an oval hypoec hoic mass measur ing 20 x 22 x 13 mm. This is either a solid mass with some small cystic areas, or a compli cated fluid collec tion. This area was previo usly scanne d on 0 at which time a simila r such mass was presen t althou gh has increa sed in size. It measur ed 9 x 8 x 5 mm previo usly. Impres osmar: Increa sing size of right breast abnorm ality. This could repres ent breast absces s althou gh other entiti es includ ing inflam matory breast cancer are not exclud ed. After patien t finish es antibi otic therap y, follow -up ultras ound is recomm ended. If the area fails to improv e signif icantl y or resolv e, then mammog virgil could be perfor med. This patien t will be sent a letter from the mammog virgil depart ment with their mammog virgil result s. Dictat ed By: YOLANDA BHATTI Transc ribed By: YOLANDA BHATTI Transc ribed On: 2020 4:00 PM Electr onical ly signed by: YOLANDA BHATTI 2021 Addend um 1 RIGHT BREAST ULTRAS OUND HISTOR Y: Right breast lump FINDIN GS: There is a 3.0 x 3.4 x 1.0 cm hypoec hoic collec tion at the 2:00 axis with debris , with increa sed vascul arity of the adjace nt breast tissue , sugges tive of inflam mation . IMPRES OSMAR: 3.4 x 3.0 x 3.1 cm right breast hypoec hoic collec tion with debris at the 2:00 axis is consis tent with an absces s. BI-RAD S Catego ry 3: Probab ly benign RECOMM ENDATI ON: Follow -up ultras ound in 6-8 weeks. Dictat ed By: STEPHANIE BELLE Dictat ed Date: Electr onical ly signed by: STEPHANIE BELLE Thank you for referr ing DAYTON CARRIZALES to [facility]. Legall y authen ticate d by ANEL Carter MD 2021-09 10:12: 36 CC'ed Logic: Orderi ng Provid er: SURYA SHEPARD CC Provid er: SURYA SHEPARD Attend ing Provid er: SURYA SHEPARD Referr ing Provid er: SURYA SHEPARD Admitt ing Provid er: SURYA NAVNEET SHEPARD [address] (Radiology) [address] , [place], [address], 09/10/2022 16:16:22 09/10/20 22 08/27/2021 hernesto LAI observ ation record ed. [address] (Radiology) [address] [place], [address], 09/10/2022 16:16:23 Result Notes None recorded. Problems Name Problem SNOMED Code Status Onset Date Resolution Date Notes Provider Name and Address Organization Details Recorded Time Acute sinusiti s 00348903 Active 2024 Isabell Saldaña NP [address] [place] [address], [phone] , [employer] 5 10:03:53 Dysfunct ion of bilatera l eustachi an tubes 54513455734 11225 Active 2024 Isabell Saldaña NP [address] [place], [address] , [employer] 5 10:03:55 Neoplasm of uncertai n behavior of skin 90059171 Completed 202011/20/2024 Problem Code: D48.5; Problem Code Type: ICD-10; Isabell Saldaña NP [address] [place], [address] , [employer] 5 10:03:50 Body mass index 30+ - obesity 372194680 Active 2020 Problem Code: Z68.30; Problem Code Type: ICD-10; Not Available [facility] 20:52:50 Problem Notes None recorded. Procedures Surgical History Date Name Laterality Status Provider Name and Address Organization Details Recorded Time 08/08/20 cholecystectomy completed Not Available [facility] 02/2022 22:56:15 Imaging Results None recorded. Procedure Notes None recorded. Medical Equipment None Reported. Allergies No known drug allergies Medications Name Sig Start Date Stop Date Status Note LastModified by Organization Details LastModified Time amoxicillin 500 mg capsule TAKE ONE CAPSULE BY MOUTH EVERY 8 HOURS active Not Available Not Available No t Available ofloxacin 0.3 % eye drops 11/20 completed Not Available Not Available Not Available Aplisol 5 tub. unit/0.1 mL intradermal injection solution Inject 0.1 mL by intraderm al route. 11/20 completed Not Available Not Available Not Available amoxicillin 500 mg tablet Take 1 tablet every 8 hours by oral route. 2024 active Not Available Not Available Not Avai lable propranolol 10 mg tablet 11/20 completed Not Available Not Available Not Available cephalexin 500 mg capsule TAKE 1 CAPSULE BY MOUTH TWICE DAILY FOR 7 DAYS 08/03 completed Not Available Not Available Not Available methimazole 5 mg tablet active Not Available Not Available Not Available amoxicillin 875 mg-potassiu m clavulanate 125 mg tablet Take 1 tablet every 12 hours by oral route with meals for 10 days. 09/17 completed Not Available Not Available Not Available amoxicillin 500 mg-potassiu m clavulanate 125 mg tablet 11/20 completed Not Available Not Available Not Available Vitals Date Recorded Body height Body mass index (BMI) Body weight Body temperature Heart rate Oxygen saturation Oxygen saturation in Arterial blood by Pulse oximetry Systolic blood pressure Diastolic blood pressure Provider Name and Address Organization Details Last Updated DateTime 5 157.48 cm 32.2 kg/m2 90385.2 6 g 98.6 [degF] 84 /min 98 % 98 % 120 mm[Hg] 81 mm[Hg] Jaylene Vera [employer] [place]. 5 09:39:14 Date Recorded Body temperature Heart rate Oxygen saturation Oxygen saturation in Arterial blood by Pulse oximetry Provider Name and Address Organization Details Last Updated DateTime 08/03/2022 98.7 [degF] 110 /min 96 % 96 % [employer]. 2 11:34:21 Date Recorded Body weight Body temperature Heart rate Oxygen saturation Oxygen saturation in Arterial blood by Pulse oximetry Body mass index (BMI) Body height Systolic blood pressure Diastolic blood pressure Provider Name and Address Organization Details Last Updated DateTime 2 91239.4 4 g 98.6 [degF] 98 /min 97 % 97 % 32.6 kg/m2 157.48 cm 110 mm[Hg] 78 mm[Hg] SHAYNE HARRIS [employer]. 09:00:01 Social History Question Answer Notes LastModified by Organizat ion Details LastModified Time Tobacco Smoking Status Never Smoker SHAYNE real [employer]. 09/17/2022 09:01:09 Do You Wear A Helmet When Biking? No [email or web address] Information not available 11/20/2024 Are You Blind Or Do You Have Difficulty Seeing? No Information n ot available 09/17/2022 Are You A Caregiver? Yes Information not available 09/17/2022 In The 14 Days Before Symptom Onset, Have You Had Close Contact With A Laboratory-confirm ed COVID-19 While That Case Was Ill? No [email or web address] Information n ot available 09/17/2022 In The 14 Days Before Symptom Onset, Have You Had Close Contact With A Person Who Is Under Investigation For COVID-19 While That Person Was Ill? No [email or web address] Information not available 09/17/2022 Have You Been To An Area Known To Be High Risk For COVID-19? No [email or web address] Information not available 09/17/2022 Are You Deaf Or Do You Have Serious Difficulty Hearing? No [email or web address] Information not available 09/17/2022 What Type Of Diet Are You Following? REGULAR [email or web address] Information n ot available 09/17/2022 Have There Been Any Changes To Your Family Or Social Situation? No [email or web address] Information no t available 09/17/2022 What Was The Date Of Your Most Recent Tobacco Screening? 11/20/2024 Information not available 11/20/2024 Do You Use Your Seat Belt Or Car Seat Routinely? Yes [email or web address] Information not available 11/20/2024 Are You Sexually Active? Yes [email or web address] Information not available 11/20/2024 Do You Participate In Social Media? Yes Information not available 11/20/2024 Has Tobacco Cessation Counseling Been Provided? No [email or web address] Information not available 11/20/2024 Have You Recently Traveled Abroad? No Information not available 09/17/2022 Do You Have Difficulty Walking Or Climbing Stairs? No [email or web address] Information not available 09/17/2022 Are You Currently In School? No [email or web address] Information not available 09/17/2022 Do You Have Any Dietary Restrictions? No [email or web address] Information not available 11/20/2024 Sex: Female Functional Status Question Answer Note LastModified by Organizat ion Details LastModified Time Do you or have you ever used any other forms of tobacco or nicotine? No Information not available 11/20/2024 What is your level of alcohol consumption? None [email or web address] Information not available 09/17/2022 Do you have transportation difficulties? No [email or web address] Information not available 09/17/2022 Are you able to walk? YESWOREST [email or web address] Information not available 09/17/2022 Do you have difficulty doing errands alone? No [email or web address] Information not available 09/17/2022 Are you able to care for yourself? Yes [email or web address] Information not available 09/17/2022 Do you have difficulty dressing or bathing? No [email or web address] Information not available 09/17/2022 Mental Status Question Answer Note LastModified by Organizat ion Details LastModified Time Do you feel stressed (tense, restless, nervous, or anxious, or unable to sleep at night)? [id number] [email or web address] Information not available 11/20/2024 Do you have difficulty concentrating, remembering or making decisions? No [email or web address] Information no t available 09/17/2022 Family History Relationship Description Onset Age of this Age Resolved Age Notes LastModified by Organization Details LastModified Time Unspecified Relation Family history of Respiratory disease [email or web address] Not available 09/17 09:00:33 Medical History Condition Response Emergency room visit since last appointm ent. N Hospitalizations N Gynecological History Statement/Question Response Date of Last Pap Smear Most Recent Mammogram Obstetrics History GPAL:G 0 P 0 0 0 0 Immunizations Vaccine Type Date Status Note Provider Nam e and Address Organization Details Recorded Time COVID-19, mRNA, LNP-S, PF, 100 mcg/0.5mL dose or 50 mcg/0.25mL dose 01/18/2021 completed SHAYNE real [facility] [employer] 09/17/2022 09:00:12 COVID-19, mRNA, LNP-S, PF, 100 mcg/0.5mL dose or 50 mcg/0.25mL dose 12/21/2020 completed SHAYNE real [facility] [employer] 09/17/2022 09:00:12 Past Encounters Encounter ID Performer Location Encounter Start Date Encounter Closed Date Diagnosis/Indication Diagnosis SNOMED-CT Code Diagnosis ICD10 Code Diagnosis Note [id number] Meg Neely [place] [address] 08/03/2022 11:07:12 08/03/2022 11:44:37 Acute suppurative otitis media without spontaneous rupture of ear drum 31380864 H66.001 Complete entire course of oral antibiotic s for 10 days with meals. Continue over-the-c ounter analgesics and antihistam mauro for pain and symptomati c relief. [id number] Carey Lee [place] [address] 09/17/2022 08:54:42 09/17/2022 09:06:51 Acute otitis media 8159145 H66.90 Body mass index 30+ - obesity 056746150 Z68.32 [id number] Meg Neely [place] [address] 0 10/29/2023 16:02:28 10/29/2023 16:30:55 Tuberculosis screening 520697530 Z11.1 [id number] Isabell Saldaña NP [place] [id number] 11/20/2024 09:19:06 11/20/2024 10:26:37 59924056 Z33.1 Acute sinusitis 60304368 J01.90 Dysfunctio n of bilateral eustachian tubes 5646130593 111034 H69.93 Health Concerns Section Related Observation LastModified by Organization Detai ls LastModified Time None Recorded Concern Status LastModified by Organization Details LastModified Time None Recorded Advance Directives Directive None Recorded Payers Insurance Date Sequence Insurance Name Policy Number Policy Connell Covered Member ID Connell Member ID Guarantor Name 11/20/2024 1 [place] [id number] Lainey Carrizales [id number] Lainey Carrizales Notes Date Note Type Note Provider Name and Address Organization Details Recorded Time 08/03/2022 text/html Ear Pain Brief HPIReported bypatient.Location:rig ht Onset/Timing:new onset; started 3days ago; constant pain; gradual onset Duration:occurs Severity:getting worse; moderate pain;fever;interferes with daily activities;interferes with ability to sleep Context:no recent URI; no recent trauma; no recent ear infection; no recent swimming; no immunocompromise; no dental problems; no recent airplane travel; no scuba diving; non-smoker Associated Symptoms:no vertigo; no jaw popping or clicking; no temporomandibular joint disease; no discharge from ear; no nasal congestion; no nasal discharge; no hearing loss; no sore throat; no dental pain; no jaw pain; no tinnitus;sense of fullness/pressure; no decreased hearing; no muffled hearingNotes:History of recurrent otitis media. Meg Neely, [employer] [address] [place], [address], [employer] 08/15/2022 18:20:05 09/17/2022 text/html pt here today wi th c/o ear ache that has been going on for a week. pt states now she has a sore throat. on exam, ears with fluid, throat red and dry, lungs clear. pt did not want swabbed. ordered abx. educated on new med. pt voiced understanding. increase fluids. return for worsening symptoms. Carey Lee, [employer] [address] [place], [address], [employer] 09/17/2022 09:14:23 11/20/2024 text/html Patient presents for congestion, bilateral ear pain and facial pain on right side. States pressure is affecting her upper teeth as well. States pain in ears is equal bilaterally. No fever. No body aches. No chills. currently 25 weeks gestation of without complication. She is treating with endocrinology for hyperthyroidism. Isabell Saldaña NP [address] [place], [address], [facility] [employer] 11/20/2024 10:18:16 OBGyn Episode No OBEpisode recorded.
== END 2025-03-23 14:40 | disposition home or self-care (01) ==
LOC: OBOUT 13:52
PROVIDERS: PCP Nurse Practitioner Family; Visit Provider Nurse Practitioner Family
DX: R69 Illness, unspecified (principal)